=== PATIENT | female | born 1960 | race Caucasian/White ===

== ENCOUNTER 2016-09-03 15:45 | Emergency (ER) | payer MEDICARE, MEDICAID ==
[~2016-09-03] VITALS: Ht 160 cm; Wt 54.4 kg
[~2016-09-03 15:45] MED LIST: ATIVAN0.5 MG PO; CIPRO 500MG TA500 MG PO; CORTISPORIN OTI10 M1 OT; DIFLUCAN 440 MG/1 ML PO; DIPROLENE AF0.05% TP; FIORICET1 CAP PO; FLEXERIL10 MG PO; FLONASE 50 MCG16 GM; HYDROCODONE1 TABLET PO; KCL 10% 2020 MEQ/15 PO; KEFLEX 500MG.500 MG PO; KEPPRA 500 MG500 MG PO; LORTAB 5/500 501 TAB PO; MAG-OX 400400 MG PO; MULTI-VITAMIN1 EACH PO; NAPROSYN 500MG500 MG PO; NAPROSYN500 M1 PO; NORCO1 TAB PO; PERCOCET 325 MG1 TA2 PO; PERCOCET 5/3251 EACH PO; PHENERGAN 25MG.25 M1 PO; ROBAXIN 500 MG500 MG PO; TEGRETOL 100MG100 MG PO; TEGRETOL 200MG200 MG PO; TETRACYCLINE500 MG PO; ULTRAM 50 MG TA50 MG PO; VICODIN 5/500 T1 TAB PO; VOLTAREN75 MG PO; ZANAFLEX4 MG PO; ZOFRAN4 MG PO; [UNRECOGNIZED DRUG - OTHER] PO; [UNRECOGNIZED DRUG - OTHER] PO
--- OUTSIDE RECORDS SUMMARY | 2016-09-03 16:22 | External Medical Summary Rpt ---
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 [place] FUN[place] ALL 6 MEDICAL UNILATERA IMAGING L WITH ASS PELVIS 1 VIEW CRITICAL 77096 JONO DE LA CRUZ CARE 6 [facility] ILL/INJUR INC INC ED PATIENT INIT 30-74 MIN GROUND A0425 [facility] MILEAGE 6 AMBULANCE AMBULANCE PER SERVICE SERVICE STATUTE MILE [facility] A0427 [facility] SERVICE 6 AMBULANCE AMBULANCE ALS SERVICE SERVICE EMERGENCY TRANSPORT LEVEL 1 HOSPITAL G0463 JONO DE LA CRUZ OUTPATIEN 6 [facility]OS[facility] T CLIN INC INC VISIT ASSESS & MGMT PT CT SOFT 19421 RADIOLOGY LESLIE TISSUE 6 NECK ASSOCIATE W/CONTRAS S OF NOT T MATERIAL NONCOVERE A9270 [facility] ITEM OR 6 [facility] SERVICE ARI ARI RADEX 66443 RADIOLOGY TEE FOOT 6 COMPLETE ASSOCIATE MINIMUM 3 S OF NOT VIEWS RADEX HIP 60250 RADIOLOGY TEE 6 UNILATERA ASSOCIATE L WITH S OF NOTH PELVIS 2-3 VIEWS SURGICAL L3260 ADVANCED ADVANCED BOOT/SHOE 6 TECHNOLOG TECHNOLOG EACH IES INC IES INC RADEX 15875 RADIOLOGY TEE SPINE 6 CERVICAL ASSOCIATE 4 OR 5 S OF NOTH VIEWS DRUG TST G0477 JONO DE LA CRUZ PRESUMP;C 6 [facility]OS[facility] PBL BEING INC INC READ DC OPT OBV ONLY HOSPITAL G0463 JONO DE LA CRUZ OUTPATIEN 6 [facility]OS[facility] T CLIN INC INC VISIT ASSESS & MGMT PT DRUG TEST G0481 JONO DE LA CRUZ DEFINITV [address] [facility] [address] ID INC INC METH P DAY 8-14 DRUG CL MRI LOWER 62451 RADIOLOGY BRANDSER EXTREM 6 ARIEL OTH/THN ASSOCIATE JT W/O S OF NOTH CONTR MATRL HOSPITAL G0463 JONO WATERSON OUTPATIEN 6 [facility] T CLIN INC INC VISIT ASSESS & MGMT PT DRUG TST G0477 JONO DE LA CRUZ PRESUMP;C 6 [facility]OSP PBL BEING INC INC READ DC OPT OBV ONLY RADEX 86284 BEACON RUBY ANKLE 5 ORTHOPAED ADA COMPLETE ICS & MINIMUM 3 SPORTS VIEWS RADEX 40291 BEACON RUBY FOOT 5 ORTHOPAED ADA COMPLETE ICS & MINIMUM 3 SPORTS VIEWS RADIOLOGI 94655 [facility] [place] JOE C EXAM 5 RADIOLOGY CAR CHEST 2 VIEWS FRONTAL&L ATERAL RADEX HIP 52409 [facility] [place] DIAZ 5 RADIOLOGY CAR UNILATERA L 1 VIEW CONV PREV 91751 NEW [place] HIP TOT 5 [place] [facility] ARTHRP PSC W/WO AGRFT/[place] L[place] I [address] NEW W[place]US SURG 5 [facility] PATHOLOGY CLINIC GROSS PSC EXAMINATI ON ONLY RADIOLOGI 95163 [facility] [place] KOSTELIC C EXAM 5 RADIOLOGY KANDICE CHEST 2 VIEWS FRONTAL&L ATERAL ECG 10702 NEW [place] ROUTINE 5 [facility] ECG CLINIC W/LEAST PSC 12 LDS I&R ONLY ARTHROCEN 04939 NEW [place]-M TESIS 5 [place] [facility] ASPIR&/IN CLINIC MAREK J MAJOR PSC JT/BURSA W/O US LOCM Q9967 NEW MARIA A-M 300-399 5 [place] [facility] MG/ML CLINIC MAREK IODINE PSC CONCENTRA TION PER ML MRI ANY 41965 [place]-M JT LOWER 5 [place] [facility] EXTREM CLINIC MAREK W/O PSC CONTRAST MATRL RADEX HIP 93990 [place] MARIFER 5 MEDICAL DEMETRICE UNILATERA IMAGING L ASS COMPLETE MINIMUM 2 VIEWS ARTHROCEN 56409 [facility] PETTEY TESIS 5 PHYSICIAN LARON ASPIR&/IN S GROUP J MAJOR JT/BURSA W/O US INJ J0702 [facility] PETTEY BETAMETHA 5 PHYSICIAN LARON SONE S GROUP ACETATE & PHOSPHATE 3 MG RADEX 19023 [place] FOOT 4 MEDICAL DEMETRICE COMPLETE IMAGING MINIMUM 3 ASS VIEWS SURGICAL L3260 ADVANCED ADVANCED BOOT/SHOE 4 TECHNOLOG TECHNOLOG EACH IES INC IES INC TYMPANOME 75208 PRIMESOUR PRIMESOUR TRY 2 CE CE HEALTHCAR HEALTHCAR E OF [place] E OF [place] [facility] [id number] [place] [address] 1 S CARE/DAY HEALTHCAR 25 E IN MINUTES [facility] [id number] [place] [address] 1 S COL CARE/DAY HEALTHCAR 25 E IN MINUTES RADIOLOGI 84046 MEDICAL SHAUNA 1 X-RAY INC SARAHY EXAMINATI ON CHEST SINGLE VIEW FRONTAL SBSQ [id number] [place] [address] 1 S COL CARE/DAY HEALTHCAR 25 E IN MINUTES RADIOLOGI 78233 MEDICAL AAKASH 1 X-RAY INC UNA EXAMINATI ON CHEST SINGLE VIEW FRONTAL [facility] [id number] [place] [address] 1 S COL CARE/DAY HEALTHCAR 25 E IN MINUTES ENTERAL 966 [facility] 1 [facility] CI CI SUBSTANCE S CONT 9672 [facility] INVASIVE [address] SPECIAL[address]- [facility] CI CI VE HRS/MORE SBSQ 91274 [facility] 1 S CARE/DAY HEALTHCAR 25 E IN MINUTES RADIOLOGI 51481 MEDICAL BECKES 1 X-RAY INC ANG EXAMINATI ON CHEST SINGLE VIEW FRONTAL SBSQ 81837 [facility] 1 S COL CARE/DAY HEALTHCAR 25 E IN MINUTES SBSQ 42690 [facility] 1 S COL CARE/DAY HEALTHCAR 25 E IN MINUTES DUP-SCAN 58943 [facility] XTR VEINS 1 CITY COMPLETE SURGICAL CONSULTA BILATERAL STUDY SBSQ 49188 [facility] 1 S LIBRA CARE/DAY HEALTHCAR 15 E IN MINUTES RADIOLOGI 41607 MEDICAL CRISPIN 1 X-RAY INC ANG EXAMINATI ON CHEST SINGLE VIEW FRONTAL SBSQ 39031 [facility] 1 S LIBRA CARE/DAY HEALTHCAR 15 E IN MINUTES SBSQ 28646 [facility] 1 S COL CARE/DAY HEALTHCAR 25 E IN MINUTES SBSQ 12190 [facility] 1 S COL CARE/DAY HEALTHCAR 35 E IN MINUTES RADIOLOGI 24607 MEDICAL STEPHANIE CHRISTOPHER C 1 X-RAY INC EXAMINATI ON CHEST SINGLE VIEW FRONTAL RADIOLOGI 68421 MEDICAL BECKES C 1 X-RAY INC ANG EXAMINATI ON CHEST SINGLE VIEW FRONTAL SBSQ 92443 [facility] 1 S COL CARE/DAY HEALTHCAR 25 E IN MINUTES RADIOLOGI 49947 MEDICAL MELANIE RAY C 1 X-RAY INC EXAMINATI ON CHEST SINGLE VIEW FRONTAL RADIOLOGI 33090 MEDICAL ADRIAN GAL C 1 X-RAY INC EXAMINATI ON CHEST SINGLE VIEW FRONTAL MRI 02623 NGUYEN GAITAN SPINAL 1 X-RAY INC CANAL LUMBAR W/O CONTRAST MATERIAL RADEX 24918 NGUYEN MORRIS SPINE 1 X-RAY INC CONSTANCE LUMBOSACR AL 2/3 VIEWS RADIOLOGI 57271 MEDICAL AAKASH C 1 X-RAY INC UNA EXAMINATI ON CHEST SINGLE VIEW FRONTAL SBSQ 08491 [facility] 1 S CARE/DAY HEALTHCAR 25 E IN MINUTES SBSQ 38321 [facility] 1 S COL CARE/DAY HEALTHCAR 25 E IN MINUTES SBSQ 22503 [facility] 1 S COL CARE/DAY HEALTHCAR 25 E IN MINUTES SBSQ 12715 [facility] 1 S COL CARE/DAY HEALTHCAR 15 E IN MINUTES SBSQ 79063 [facility] 1 S COL CARE/DAY HEALTHCAR 25 E IN MINUTES RADIOLOGI 74556 MEDICAL FLORI C 1 X-RAY INC MAREK EXAMINATI ON CHEST SINGLE VIEW FRONTAL RADIOLOGI 70751 MEDICAL FLORI Lee 1 X-RAY INC MAREK EXAMINATI ON CHEST SINGLE VIEW FRONTAL RADIOLOGI 33874 MEDICAL CRISPIN C 1 X-RAY INC ANG EXAMINATI ON CHEST SINGLE VIEW FRONTAL RADIOLOGI 93020 MEDICAL ADRIAN GARCIA C 1 X-RAY INC EXAMINATI ON CHEST SINGLE VIEW FRONTAL SBSQ 76153 [facility] 1 S LIBRA CARE/DAY HEALTHCAR 15 E IN MINUTES SBSQ 77766 [facility] 1 S LIBRA CARE/DAY HEALTHCAR 15 E IN MINUTES RADIOLOGI 79004 MEDICAL SHAUNA C 1 X-RAY INC SARAHY EXAMINATI ON CHEST SINGLE VIEW FRONTAL SBSQ 30534 [facility] 1 S COL CARE/DAY HEALTHCAR 25 E IN MINUTES FLUORO 74456 MEDICAL JULIANO CENTRAL 1 X-RAY INC FRA VENOUS ACCESS DEV PLACEMENT INSJ [facility] 18504 MEDICAL JULIANO CVC W/O 1 X-RAY INC FRA SUBQ PORT/COMB TENDER AGE 4 YR/> VASC 71314 MEDICAL JULIANO ACCESS 1 X-RAY INC FRA SITS VSL PATENCY NDL ENTRY RADIOLOGI 66904 [facility] 1 X-RAY INC CONSTANCE EXAMINATI ON CHEST SINGLE VIEW FRONTAL INTUBATIO 93215 OBSTETRIC ELLER AYAH N 1 ENDOTRACH ANESTHESI EAL A ASSOCIA EMERGENCY PROCEDURE SBSQ 03534 [facility] 1 S COL CARE/DAY HEALTHCAR 35 E IN MINUTES CRITICAL 66311 [facility] 1 EMERGENCY ILL/INJUR ED SPECIALIS PATIENT INIT 30-74 MIN RADIOLOGI 49241 [facility] 1 X-RAY INC UNA EXAMINATI ON CHEST SINGLE VIEW [facility] 72715 A C JESSICA DISCHARGE 1 ARISTIDES RAMOS NANDA DAY PSC MANAGEMEN T 30 MIN/< SBSQ 49466 [facility] 1 ARISTIDES RAMOS CARE/DAY PSC 15 MINUTES SBSQ 23178 [facility] 1 ARISTIDES RAMOS CARE/DAY PSC 15 MINUTES RADEX 38392 [place]ER SPINE 1 MEDICAL DEMETRICE LUMBOSACR IMAGING AL 2/3 ASS VIEWS SPECIAL 18579 PATHOLOGY PATHOLOGY STAIN 1 & & GROUP 1 CYTOLOGY CYTOLOGY MICROORGA LAB LAB NISMS I&R SPCL STN 06256 PATHOLOGY PATHOLOGY 2 I&R 1 & & EXCPT CYTOLOGY CYTOLOGY MICROORG/ LAB LAB ENZYME/[place] [address] PATHOLOGY PATHOLOGY SURG 1 & & PATHOLOGY CYTOLOGY CYTOLOGY LAB LAB GROSS&UNA ROSCOPIC EXAM ANES 73585 [facility] 1 ANESTH JACY ENDOSCOPY OF THE PROXIMAL BLUE TO DUODENUM EGD 32392 FRANCISCO SINGH JR TRANSORAL 1 CONSTANCE CONSTANCE BIOPSY SINGLE/MU LTIPLE SBSQ 56411 [facility] 1 ARISTIDES RAMOS CARE/DAY PSC 25 MINUTES ESOPHAGOG 4516 JONO DE LA CRUZ ASTRODUOD 1 [facility] ENOSCOPY INC INC WITH CLOSED BIOPSY SBSQ 92800 [facility] 1 ARISTIDES RAMOS CARE/DAY PSC 25 MINUTES HEPATBL 44042 [facility] BURNSMARIFER DUX SYS 1 MEDICAL DEMETRICE IMG IMAGING GLBLDR ASS INITIAL 49592 [facility] 1 CONSTANCE NOLASCO CARE/DAY 70 MINUTES INITIAL 78096 Yury [facility] 1 ARISTIDES RAMOS CARE/DAY P[place] 70 [place] [address] ABENA CAICEDO ABDOMINAL 1 MEDICAL DEMETRICE REAL IMAGING TIME ASS W/IMAGE LIMITED GROUND A0425 [facility] MILEAGE 1 AMBULANCE AMBULANCE PER SERVICE SERVICE STATUTE MILE 3D 89893 ABENA BURNSUTCHER RENDERING 1 MEDICAL DEMETRICE IMAGING W/INTERP& ASS POSTPROC DIFF WORK STATION AMB A0427 [facility] SERVICE 1 AMBULANCE AMBULANCE ALS SERVICE SERVICE [place] [address] ABENA CAICEDO ABDOMEN & 1 MEDICAL DEMETRICE PELVIS IMAGING W/O ASS CONTRAST MATERIAL CYTP C/V 46904 BIO BIO AUTO THIN 1 REFERNCE REFERNCE LYR LABORATOR LABORATOR PREPJ SCR IES IES MNL RESCR PHYS NONEMERGE A0100 [facility] NCY 1 COMMUNITY TRANSPORT ACTION ATION; TAXI NONEMERGE A0100 [facility] NCY 1 COMMUNITY TRANSPORT ACTION ATION; TAXI COLPOSCOP 65594 [facility] MANZANARES R Y ENTIRE 1 VERA GAMEZ MD VAGINA W/CERVIX IF PRESENT IADNA 73802 BIO BIO CHLAMYDIA 1 REFERNCE REFERNCE LABORATOR LABORATOR TRACHOMAT IES IES IS AMPLIFIED PROBE TQ [facility]- 46161 [place] AIDED 1 MEDICAL DEMETRICE DETECTION IMAGING ASS SCREENING MAMMOGRAP HY SCREENING G0202 [facility] 1 MEDICAL DEMETRICE MAMMOGRAP IMAGING HY WHITNEY ASS INCL CAD WHEN PERFORMD CYTP C/V 58755 BIO BIO AUTO THIN 1 REFERNCE REFERNCE LYR LABORATOR LABORATOR PREPJ SCR IES IES MNL RESCR PHYS CYTP 71721 BIO BIO CERVICAL/ 1 REFERNCE REFERNCE VAGINAL LABORATOR LABORATOR REQ IES IES INTERP PHYSICIAN IADNA 33453 BIO BIO NEISSERIA 1 REFERNCE REFERNCE LABORATOR LABORATOR GONORRHOE IES IES AE AMPLIFIED PROBE TQ IADNA NOS 51466 BIO BIO 1 REFERNCE REFERNCE AMPLIFIED LABORATOR LABORATOR PROBE TQ IES IES EACH ORGANISM NONEMERGE A0100 [facility] 1 COMMUNITY TRANSPORT ACTION ATION; TAXI BLOOD 66621 LEIGHTON GAMEZ OCCULT 1 VERA PYLE E ACTV QUAL FECES 1 DETER SIMPLE 56447 JONO DE LA CRUZ REPAIR 1 [facility] SCALP/NEC INC INC K/AX/DORITA T/TRUNK 2.5CM/< BLOOD 03959 [facility] COUNT 1 [facility] COMPLETE AUTO&AUTO DIFRNTL WBC BASIC 40208 [facility] METABOLIC 1 [facility] PANEL CALCIUM TOTAL CYANOCOBA 46524 [facility] PRIYA 1 [facility] VITAMIN B-12 [place] [address] [facility] OF FERRITIN 1 [place] [address] [facility] OF [facility] FOLIC 1 [facility] [place] [place] [address] [facility] IRON 1 [facility] COLLECTIO 44453 A C TAIWO CHRISTOPHER N VENOUS 1 ARISTIDES RAMOS BLOOD PSC VENIPUNCT URE LIPID 75949 [facility] PANEL 1 [facility] IRON 31374 [facility] BINDING 1 [facility] CAPACITY NONEMERGE A0100 [facility] 1 COMMUNITY TRANSPORT ACTION ATION; TAXI NONEMERGE A0100 [facility] 1 COMMUNITY TRANSPORT ACTION ATION; TAXI INJ J0702 [facility] PETTEY BETAMETHA 1 PHYSICIAN LARON PIZANO S GROUP ACETATE & PHOSPHATE 3 MG ARTHROCEN 88887 [facility] TESIS 1 PHYSICIAN PHYSICIAN ASPIR&/IN S GROUP S GROUP J MAJOR JT/BURSA W/O US NONEMERGE A0100 [facility] 1 COMMUNITY TRANSPORT ACTION ATION; TAXI COLLECTIO 01394 JONO DE LA CRUZ N VENOUS 1 [facility] [place] [address] JONO DE LA CRUZ THYROID [address] [facility] STIMULATI [place] [address] JONO DE LA CRUZ THYROXINE [facility] TOTAL INC INC THYROID 51992 JONO DE LA CRUZ HORM [facility]P UPTK/THYR INC INC OID HORMONE BINDING RATIO NONEMERGE A0100 [facility] 1 COMMUNITY TRANSPORT ACTION ATION; TAXI NONEMERGE A0100 [facility] NC[facility] 1 COMMUNITY TRANSPORT ACTION ATION; TAXI RADIOLOGI 82143 [facility] BURNSMARIFER C 1 MEDICAL DEMETRICE EXAMINATI IMAGING ON PELVIS ASS 1/2 VIEWS RADEX 50231 [facility] WRIST 1 MEDICAL DEMETRICE COMPLETE IMAGING MINIMUM 3 ASS VIEWS RADEX 11785 [place] SPINE 1 MEDICAL DEMETRICE LUMBOSACR IMAGING AL ASS MINIMUM 4 VIEWS RADEX 25317 [place] SACRUM & 1 MEDICAL DEMETRICE COCCYX IMAGING MINIMUM 2 ASS VIEWS CANE INCL E0100 SILVINA SILVINA CANES 0 HOME MED HOME MED ALL EQUIP. L EQUIP. L MATERIAL ADJUSTBLE /FIX W/TIP KNEE L1810 SILVINA SILVINA ORTHOSIS 0 HOME MED HOME MED ELASTIC EQUIP. L EQUIP. L JOINTS PREFAB CUSTOM FIT NONEMERGE A0100 [facility] 0 COMMUNITY TRANSP[place]; [place] [address] THE THE SURG 0 [facility] PATHOLOGY CLINIC CLINIC FOUNDAT FOUNDAT GROSS&UNA ROSCOPIC EXAM RADIOLOGI 71386 [facility] CONDONMARIFER C EXAM 0 MEDICAL DEMETRICE KNEE IMAGING COMPLETE ASS 4/MORE VIEWS NONEMERGE A0100 [facility] 0 COMMUNITY TRANSPORT ACTION ATION; TAXI NONEMERGE A0100 [facility] 0 COMMUNITY TRANSPORT ACTION ATION; TAXI NONEMERGE A0100 [facility] 0 COMMUNITY TRANSPORT ACTION ATION; TAXI COLLECTIO 58642 JONO DE LA CRUZ N VENOUS 0 [facility]P [place]LOOD [place] [address] JONO DE LA CRUZ THYROID 0 [facility]P STIMULATI [place] [address] JONO DE LA CRUZ ESTRADIOL 0 [facility] INC INC NONEMERGE A0100 [facility] 0 COMMUNITY TRANSPORT ACTION ATION; TAXI SIMPLE 01712 JONO DE LA CRUZ REPAIR 0 [facility] SCALP/NEC INC INC K/AX/DORITA T/TRUNK 2.5CM/< IM ADM 74081 JONO DE LA CRUZ PRQ ID 0 [facility] SUBQ/IM INC INC NJXS 1 VACCINE OPHTH 24112 VALENTINE NANCI VALENTINE NANCI MEDICAL 0 XM&EVAL COMPRHNSV ESTAB PT 1/> NONEMERGE A0100 [facility] 0 COMMUNITY TRANSPORT ACTION ATION; TAXI NONEMERGE A0100 [facility] 0 COMMUNITY TRANSPORT ACTION ATION; TAXI URINLS 69671 Yury MARAVILLA CHRISTOPHER DIP 0 ARISTIDES RAMOS STICK/TAB PSC LET REAGNT NON-AUTO MICRSCPY LIPID 92908 [facility] PANEL 0 [place] [facility] [place] [facility] COLLECTIO 05194 Yury MARAVILLA, N VENOUS 0 ARISTIDES SANCHEZ A BLOOD PSC VENIPUNCT URE GLUCOSE 56755 [facility] QUANTITAT 0 [facility] JEREMI BLOOD XCPT REAGENT STRIP NONEMERGE A0100 [facility] 0 COMMUNITY TRANSPORT ACTION ATION; TAXI SCREENING 74737 [place] MEDICAL SINCERE MAMMOGRAP IMAGING HY ASSOCIATE BILATERAL S IADNA 91462 [facility] OF NEISSERIA 0 [facility] GONORRHOE AE AMPLIFIED PROBE TQ CYTP C/V 25598 [facility] OF AUTO THIN 0 [facility] LYR PREPJ SCR MNL RESCR PHYS IADNA 09139 [facility] OF CHLAMYDIA 0 [facility] TRACHOMAT IS AMPLIFIED PROBE TQ COMPUTER- 48721 [place], AIDED 0 MEDICAL SINCERE DETECTION IMAGING ASSOCIATE SCREENING S MAMMOGRAP HY RADEX HIP 27231 MEDICAL ABDULAZIZ 0 X-RAY INC , UNILATERA LUIS L COMPLETE MINIMUM 2 VIEWS RADEX 92056 MEDICAL ABDULAZIZ SPINE 0 X-RAY INC , LUMBOSACR LUIS AL 2/3 VIEWS JOINT 54852 [facility] SUR[facility]Y 0 [facility] V[facility] 2 OR INC. INC. MORE JOINTS RADIOLOGI 75764 [facility] Cristian [place] C 0 RADIOLOGY JENNIFER EXAMINATI ASSOC OF ON KNEE OSCAR INC 1/2 VIEWS EGD 79555 [facility], TRANSORAL 0 SARKIS A BIOPSY GASTROENT SINGLE/[place] [address] SURG 0 LUIS SMITH PATHOLOGY MEDICALCE MEDICALCE GROSS&UNA NTER NTER ROSCOPIC EXAM COLONOSCO 40942 [facility], PY 0 SARKIS A W/BIOPSY GASTROENT SINGLE/MU EROLOGYAS LTIPLE SOC IMMUNOASS [address] AY 0 LUISDARA SMITH ANALYTE QUAL/SEMI MEDICALCE MEDICALCE QUAL NTER NTER MULTIPLE STEP BLOOD [address] COUNT 0 LUISDARA HENAOTH COMPLETE AUTO&AUTO MEDICALCE MEDICALCE DIFRNTL NTER NTER WBC COLLECTIO 34291 [facility] N VENOUS 0 LUIS HENAOTH BLOOD VENIPUNCT MEDICALCE MEDICALCE URE NTER NTER BLOOD 84645 [facility] 0 [facility] COMPLETE INC INC AUTO&AUTO DIFRNTL WBC THER 97930 [facility] PROPH/DX 0 [facility] NJX IV INC INC PUSH SINGLE/1S T SBST/DRUG BASIC 17852 [facility] METABOLIC 0 [facility] PANEL INC INC CALCIUM TOTAL THERAPEUT 42801 [facility] IC 0 [facility] INJECTION INC INC IV PUSH EACH NEW DRUG GROUND A0425 [facility] MILEAGE 0 AMBULANCE AMBULANCE PER SERVICE SERVICE STATUTE MILE KNEE L1830 [facility] ORTHOSIS 0 [facility] IMMOBLIZE INC [place] [address] [facility] INFUSION 0 [facility] THER INC INC PROPH ADDL SEQUENTIA L TO 1 HR AMBULANCE A0429 [facility] SERVICE 0 AMBULANCE AMBULANCE [facility] SERVICE SERVICE [place] [address] MEDICAL [facility] EXTREMITY 0 X-RAY INC , DANIELITO W/[place] [address] MEDICAL MELANIE, ABDOMEN 0 X-RAY INC EHSAN T W/CONTRAS T MATERIAL INITIAL 15511 [facility] 0 [facility]/DAY CORPORATI I [address] PELVIS [address] MEDICAL MELANIE, 0 X-RAY INC EHSAN T W/CONTRAS T MATERIAL RADIOLOGI 37768 RADIOLOGY Jesus RUBY EXAM 9 JEM L KNEE ASSOCIATE COMPLETE S PSC 4/MORE VIEWS BLOOD [address] COUNT 8 [facility] COMPLETE AUTO&AUTO MEDICALCE MEDICALCE DIFRNTL NTER NTER WBC HEPATIC [address] FUNCTION 8 [facility] PANEL MEDICALCE MEDICALCE NTER NTER DRUG [address] ASSAY 8 [facility] [place] MEDICALCE MEDICALCE TOTAL NTER NTER ECG 21705 [facility], ROUTINE 8 HEART & DANIELLE ECG VASCULAR W/[facility] CENTER 12 [facility] I&R ONLY RADIOLOGI 33604 [facility] UNIVERSIT C 8 Y Y EXAMINATI [facility] ON [facility] INC. INC. & FIBULA 2 VIEWS BLOOD 43921 UN[facility] UNIVERSIT COUNT 8 Y Y [facility] AUTO&AUTO INC. INC. DIFRNTL WBC SEDIMENTA 85507 UNIVERSIT UNIVERSIT TION RATE 8 Y Y RBC [facility] AUTOMATED INC. INC. RADEX 24695 UN[facility] UNIVERSIT FOOT 8 Y Y [facility] MINIMUM 3 INC. INC. VIEWS C-REACTIV 34964 UN[facility] UNIVERSIT E PROTEIN 8 Y Y [facility] INC. INC. Encounters Encounter Start End Date Code Location Performer Type Date OFFICE 69036 [facility] 7 7 [place] [facility] 15 PSC MINUTES OFFICE 59499 [facility] OUTPATIEN 7 7 [place] [facility] 15 PSC MINUTES [facility] ACCESS [address] [facility] JONO - 6 6 [facility] T [facility] J[facility]O - 6 6 [facility] OUTPATI[facility] INC T OFFICE 03848 [facility] LENNIEL OUTPATIEN 6 6 PHYSICIAN DISHA T VISIT S GROUP 15 MINUTES [facility] - 6 6 [facility] OUTPATIEN INC T OFFICE 11173 [facility] OUTPATIEN 6 6 [place] [facility] [place] [facility] 15 PSC MINUTES OFFICE 19062 [facility] OUTPATIEN 6 6 MD VIKA, T VISIT PSC 15 MINUTES [facility] - 6 6 [facility] INC T OFFICE 04323 [facility] SO OUTPATIEN 6 6 [place] [facility] 15 PSC MINUTES OFFICE 47018 [facility] OUTPATIEN 6 6 MD VIKA, T VISIT PSC 15 MINUTES [facility] - 6 6 [facility] OUTPATIEN INC T EMERGENCY 31977 [facility] 6 6 [facility] DEPARTMEN INC T VISIT LOW/MODER SEVERITY [facility] - 6 6 [facility] T [facility] - 6 6 [facility] OUTPATIEN INC T OFFICE 91466 [facility] HOOKER OUTPATIEN 6 6 PHYSICIAN T VISIT S GROUP 25 MINUTES [facility]OSPITAL [facility] - 6 6 [facility] OUTPATIEN INC T OFFICE 64966 [facility] OUTPATIEN 6 6 MD VIKA, T VISIT PSC [address] [facility] T VISIT MODERATE SEVERITY CRITICAL ST. ACCESS 6 6 [facility] OFFICE 00282 AJ WEATHERS OUTPATIEN 6 6 MD VIKA, T VISIT PSC 15 MINUTES HOSPITAL [facility] - 6 6 [facility] T OFFICE 77718 ALBER STEVENS OUTPATIEN 6 6 T NEW 45 MINUTES OFFICE 39257 OSCAR RUBY OUTPATIEN 6 6 ORTHOPAED ADA T VISIT ICS & 15 SPORTS MINUTES HOSPITAL JONO - 6 6 [facility] T OFFICE 35826 AJ VILLANUEVA OUTPATIEN 6 6 MD VIKA, T NEW 45 PSC MINUTES OFFICE 82086 OSCAR RUBY OUTPATIEN 5 5 ORTHOPAED ADA T NEW 30 ICS & MINUTES SPORTS [facility] JONO - 5 5 [facility] T OFFICE 02967 [facility] PETTEY OUTPATIEN 5 5 PHYSICIAN JAM T VISIT S GROUP 15 MINUTES EMERGENCY 61287 HUHN THO HUHN THO 4 4 [facility] MODERATE SEVERITY Emergency TRACEE ZUÑIGA (ER) 4 18:23 4 19:15 [facility] - [facility] 1 1 [facility] INPATIENT INC EMERGENCY 41132 SHAILESH ROBERTS DEPT 1 1 EMERGENCY III FERMIN VISIT SERVICES HIGH SEVERITY& THREAT FUNCJ EMERGENCY 49327 SHAILESH MARIN DEPT 1 1 EMERGENCY UNA VISIT SERVICES HIGH SEVERITY& THREAT FUNCJ OFFICE 27019 LEIGHTON GAMEZ OUTPATIEN 1 1 VERA GAUTHIER T VISIT 15 MINUTES EMERGENCY 12344 JONO 1 1 [facility] LOW/MODER SEVERITY OFFICE 37657 LEIGHTON GAMEZ OUTPATIEN 1 1 VERA GAUTHIER T VISIT 40 MINUTES HOSPITAL JONO - 1 1 [facility] OUTPATIEN INC T EMERGENCY 09707 SHAILESH ELKINS 1 1 [facility]ISIT HIGH/URGE NT SEVERITY HOSPITAL JONO - 1 1 [facility] OUTPATIEN INC T EMERGENCY 47709 [facility]OW/MODER SEVERITY OFFICE 13000 A C OUTPATIEN 1 1 ARISTIDES RAMOS T VISIT PSC 15 MINUTES OFFICE 06511 [facility] PETTEY OUTPATIEN 1 1 PHYSICIAN LARON T VISIT S GROUP 15 MINUTES OFFICE 81440 LEIGHTON GAMEZ OUTPATIEN 1 1 VERA GAUTHIER T VISIT 15 MINUTES HOSPITAL JONO - 1 1 [facility] OUTPATIEN INC HOSPITAL JONO - 1 1 [facility] OUTPATIEN INC T EMERGENCY 59279 JONO 1 1 [facility]ISIT LOW/MODER SEVERITY EMERGENCY 69710 SHAILESH MARIN [address] [facility] DEPARTMEN SERVICES T VISIT HIGH/URGE NT SEVERITY OFFICE 90839 [facility] PETTEY OUTPATIEN 0 0 PHYSICIAN JAM T VISIT S GROUP 15 MINUTES HOSPITAL [facility] - 0 0 [place] 49085 [facility] PETTEY OUTPATIEN 0 0 PHYSICIAN JAM T NEW 45 S GROUP MINUTES OFFICE 65640 LEIGHTON GAMEZ OUTPATIEN 0 0 VERA GAUTHIER T VISIT 15 MINUTES HOSPITAL JONO - 0 0 [facility] OUTPATIEN INC T OFFICE 12878 LEIGHTON Madison HARTOBY OUTPATIEN 0 0 VERA GAUTHIER T VISIT 15 MINUTES OFFICE 28860 LEIGHTON GAMEZ OUTPATIEN 0 0 VERA GAUTHIER T VISIT 15 MINUTES EMERGENCY 37528 JONO 0 0 [facility] DEPARTMEN INC T VISIT LOW/MODER SEVERITY HOSPITAL JONO - 0 0 [facility] OUTPATIEN INC T EMERGENCY 21062 SHAILESH SHAWNCurtis BAB 0 0 EMERGENCY DEPARTMEN SERVICES T VISIT MODERATE SEVERITY OFFICE 17968 A Jesus WHITE OUTPATIEN 0 0 ARISTIDES RAMOS T VISIT PSC 15 MINUTES OFFICE 26277 [facility] OUTPATIEN 0 0 [facility] T NEW 45 MINUTES EMERGENCY 57858 QUALIFED MEGAN AYAH 0 0 EMERGENCY DEPARTMEN T VISIT SPECIALIS MODERATE SEVERITY OFFICE 98199 Yury MARAVILLA, OUTPATIEN 0 0 ARISTIDES Cotton T VISIT 5 PSC MINUTES OFFICE 84230 LEIGHT[facility] GAMEZ OUTPATIEN 0 0 VERA Madison T VISIT 15 MINUTES OFFICE 78664 LEIGHT[facility] GAMEZ OUTPATIEN 0 0 VERA [place] T VISIT 15 MINUTES HOSPITAL JONO - 0 0 [facility] OUTPATIEN INC T OFFICE 71902 [facility], OUTPATIEN 0 0 SARKIS A T VISIT GASTROENT 15 EROLOGYAS MINUTES SOC HOME [facility], 0 0 DIST OTHER HEALTH DEPT DESIGN ARCHITECT EMERGENCY 48835 QUALIFED KALLIE, 0 0 EMERGENCY SAMUEL DEPARTMEN T VISIT SPECIALIS MODERATE TS SEVERITY OFFICE 19296 [facility] OUTPATIEN 0 0 Y T VISIT 5 [facility] T INC. HOSPITAL ST - OTHER 0 0 [facility], 0 0 DIST OTHER HEALTH DEPT DESIGN ARCHITECT OFFICE 23169 [facility] 0 0 SARKIS A T NEW 45 GASTROENT MINUTES [facility] ST - OTHER 0 0 [facility] JONO - 0 0 [facility] OUTPATIEN INC T EMERGENCY 66439 SHAILESH GUAJARDO, 0 0 EMERGENCY BOSSMAN M DEPARTMEN SERVICES T VISIT HIGH/URGE ASSOCIATE NT S SEVERITY EMERGENCY 14608 QUALIFELucila LOVE, DEPT 0 0 EMERGENCY JOSEPH M VISIT HIGH SPECIALIS SEVERITY& TS THREAT FUNJ EMERGENCY 15237 SHAILESH HORAN, 0 0 EMERGENCY HONG DEPARTMEN SERVICES O T VISIT HIGH/URGE ASSOCIATE NT S SEVERITY [facility] JONO - 0 0 [facility] OUTPATIEN INC HOSPITAL UNIVERSIT - 8 8 Y [facility] OFF[facility] 85583 [facility] 8 Y T VISIT [facility] 15 [facility] - OTHER 8 8 [facility] 49308 RILEY CHAN, 8 8 [place] [facility] VIS[facility] ON MODERATE SEVERITY H[facility]PITAL [facility] - 8 8 Y [facility] 53054 UNIVERSIT 8 8 Y DEPARTMEN HOSPITAL T VISIT INC. LIMITED/M IN[facility] 8 8 Y [facility] INC[facility] OFFICE 09563 [facility] 8 8 Y T VISIT [place] [address] INC. MINUTES
--- OUTSIDE RECORDS SUMMARY | 2016-09-03 16:22 | External Medical Summary Rpt ---
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 2/3 VIEWS RADIOLOGI 21837 MEDICAL AAKASH C 1 X-RAY INC UNA EXAMINATI ON CHEST SINGLE VIEW FRONTAL SBSQ 06832 [facility] 1 S CARE/DAY HEALTHCAR 25 E IN MINUTES SBSQ 08826 [facility] 1 S COL CARE/DAY HEALTHCAR 25 E IN MINUTES SBSQ 70608 [facility] 1 S COL CARE/DAY HEALTHCAR 25 E IN MINUTES SBSQ 56570 [facility] 1 S COL CARE/DAY HEALTHCAR 15 E IN MINUTES SBSQ 40508 [facility] 1 S COL CARE/DAY HEALTHCAR 25 E IN MINUTES RADIOLOGI 98977 MEDICAL FLORI C 1 X-RAY INC MAREK EXAMINATI ON CHEST SINGLE VIEW FRONTAL RADIOLOGI 05658 MEDICAL FLORI Lee 1 X-RAY INC MAREK EXAMINATI ON CHEST SINGLE VIEW FRONTAL RADIOLOGI 90265 MEDICAL CRISPIN C 1 X-RAY INC ANG EXAMINATI ON CHEST SINGLE VIEW FRONTAL RADIOLOGI 95184 MEDICAL ADRIAN GARCIA C 1 X-RAY INC EXAMINATI ON CHEST SINGLE VIEW FRONTAL SBSQ 00814 [facility] 1 S LIBRA CARE/DAY HEALTHCAR 15 E IN MINUTES SBSQ 67049 [facility] 1 S LIBRA CARE/DAY HEALTHCAR 15 E IN MINUTES RADIOLOGI 49890 MEDICAL SHAUNA C 1 X-RAY INC SARAYH EXAMINATI ON CHEST SINGLE VIEW FRONTAL SBSQ 60518 [facility] 1 S COL CARE/DAY HEALTHCAR 25 E IN MINUTES FLUORO 85592 MEDICAL JULIANO CENTRAL 1 X-RAY INC FRA VENOUS ACCESS DEV PLACEMENT INSJ [facility] 93348 MEDICAL JULIANO CVC W/O 1 X-RAY INC FRA SUBQ PORT/DATA STORAGE SPECIALIST AGE 4 YR/> VASC 18551 MEDICAL JULIANO ACCESS 1 X-RAY INC FRA SITS VSL PATENCY NDL ENTRY RADIOLOGI 13487 [facility] 1 X-RAY INC CONSTANCE EXAMINATI ON CHEST SINGLE VIEW FRONTAL INTUBATIO 07870 OBSTETRIC ELLER AYAH N 1 ENDOTRACH ANESTHESI EAL A ASSOCIA EMERGENCY PROCEDURE SBSQ 70371 [facility] 1 S COL CARE/DAY HEALTHCAR 35 E IN MINUTES CRITICAL 76078 [facility] 1 EMERGENCY ILL/INJUR ED SPECIALIS PATIENT INIT 30-74 MIN RADIOLOGI 54214 [facility] 1 X-RAY INC UNA EXAMINATI ON CHEST SINGLE VIEW [facility] 38719 A C JESSICA DISCHARGE 1 ARISTIDES RAMOS NANDA DAY PSC MANAGEMEN T 30 MIN/< SBSQ 93234 A [facility] 1 ARISTIDES RAMOS CARE/DAY PSC 15 MINUTES SBSQ 20008 A [facility] 1 ARISTIDES RAMOS CARE/DAY PSC 15 MINUTES RADEX 17072 [place] [facility] SPINE 1 MEDICAL DEMETRICE LUMBOSACR IMAGING AL 2/3 ASS VIEWS SPECIAL 63614 PATHOLOGY PATHOLOGY STAIN 1 & & GROUP 1 CYTOLOGY CYTOLOGY MICROORGA LAB LAB NISMS I&R SPCL STN 92457 PATHOLOGY PATHOLOGY 2 I&R 1 & & EXCPT CYTOLOGY CYTOLOGY MICROORG/ LAB LAB ENZYME/[place] [address] PATHOLOGY PATHOLOGY SURG 1 & & PATHOLOGY CYTOLOGY CYTOLOGY LAB LAB GROSS&UNA ROSCOPIC EXAM ANES 92731 [facility] UPPER GI 1 ANESTH JACY ENDOSCOPY OF THE PROXIMAL BLUE TO DUODENUM EGD 03522 FRANCISCO SINGH JR TRANSORAL 1 CONSTANCE CONSTANCE BIOPSY SINGLE/MU LTIPLE SBSQ 03404 A [facility] 1 ARISTIDES RAMOS CARE/DAY PSC 25 MINUTES ESOPHAGOG 4516 [facility] DE [facility] ASTRODUOD 1 [facility] ENOSCOPY INC INC WITH CLOSED BIOPSY SBSQ 69614 A [facility] 1 ARISTIDES RAMOS CARE/DAY PSC 25 MINUTES HEPATBL 80327 [facility] BURNSMARIFER DUX SYS 1 MEDICAL DEMETRICE IMG IMAGING GLBLDR ASS INITIAL 37842 [facility] 1 CONSTANCE NOLASCO CARE/DAY 70 MINUTES INITIAL [address] [facility] 1 ARISTIDES RAMOS CARE/[place] P[place] 70 [place] [address] ABENA CAICEDO ABDOMINAL 1 MEDICAL DEMETRICE REAL IMAGING TIME ASS W/IMAGE LIMITED GROUND A0425 [facility] MILEAGE 1 AMBULANCE AMBULANCE PER SERVICE SERVICE STATUTE MILE 3D 68472 ABENA BURNSUTCHER RENDERING 1 MEDICAL DEMETRICE IMAGING W/INTERP& ASS POSTPROC DIFF WORK STATION AMB A0427 [facility] SERVICE 1 AMBULANCE AMBULANCE ALS SERVICE SERVICE [place] [address] ABENA CAICEDO ABDOMEN & 1 MEDICAL DEMETRICE PELVIS IMAGING W/O ASS CONTRAST MATERIAL CYTP C/V 43066 BIO BIO AUTO THIN 1 REFERNCE REFERNCE LYR LABORATOR LABORATOR PREPJ SCR IES IES MNL RESCR PHYS NONEMERGE A0100 [facility] CAB NCY 1 COMMUNITY TRANSPORT ACTION ATION; TAXI NONEMERGE A0100 [facility] CAB NCY 1 COMMUNITY TRANSPORT ACTION ATION; TAXI COLPOSCOP 66714 [facility] MANZANARES R Y ENTIRE 1 VERA GAMEZ MD VAGINA W/CERVIX IF PRESENT IADNA 31362 BIO BIO CHLAMYDIA 1 REFERNCE REFERNCE LABORATOR LABORATOR TRACHOMAT IES IES IS AMPLIFIED PROBE TQ [facility]- [address]10 [place] [facility] AIDED 1 MEDICAL DEMETRICE DETECTION IMAGING ASS SCREENING MAMMOGRAP HY SCREENING G0202 [facility] 1 MEDICAL DEMETRICE MAMMOGRAP IMAGING HY WHITNEY ASS INCL CAD WHEN PERFORMD CYTP C/V 12559 BIO BIO AUTO THIN 1 REFERNCE REFERNCE LYR LABORATOR LABORATOR PREPJ SCR IES IES MNL RESCR PHYS CYTP 23001 BIO BIO CERVICAL/ 1 REFERNCE REFERNCE VAGINAL LABORATOR LABORATOR REQ IES IES INTERP PHYSICIAN IADNA 94332 BIO BIO NEISSERIA 1 REFERNCE REFERNCE LABORATOR LABORATOR GONORRHOE IES IES AE AMPLIFIED PROBE TQ IADNA NOS 05081 BIO BIO 1 REFERNCE REFERNCE AMPLIFIED LABORATOR LABORATOR PROBE TQ IES IES EACH ORGANISM NONEMERGE A0100 [facility] 1 COMMUNITY TRANSPORT ACTION ATION; TAXI BLOOD 18135 [facility] GAMEZ OCCULT 1 VERA PYLE E ACTV QUAL FECES 1 DETER SIMPLE 36008 [facility] REPAIR 1 [facility] SCALP/NEC INC INC K/AX/DORITA T/TRUNK 2.5CM/< BLOOD 27512 [facility] COUNT 1 [facility] COMPLETE AUTO&AUTO DIFRNTL WBC BASIC 70459 [facility] METABOLIC 1 [facility] PANEL CALCIUM TOTAL CYANOCOBA 27830 [facility] PRIYA 1 [facility] VITAMIN B-12 [place] [address] [facility] FERRITIN 1 [facility] [place] [address] [facility] FOLIC 1 [facility] [place] [address] [facility] IRON 1 [facility] COLLECTIO 94937 A C TAIWO CHRISTOPHER N VENOUS 1 ARISTIDES RAMOS BLOOD PSC VENIPUNCT URE LIPID 48580 [facility] PANEL 1 [facility] IRON 70682 [facility] BINDING 1 [facility] CAPACITY NONEMERGE A0100 [facility] 1 COMMUNITY TRANSPORT ACTION ATION; TAXI NONEMERGE A0100 [facility] 1 COMMUNITY TRANSPORT ACTION ATION; TAXI INJ J0702 [facility] PETTEY BETAMETHA 1 PHYSICIAN LARON PIZANO S GROUP ACETATE & PHOSPHATE 3 MG ARTHROCEN 09227 [facility] TESIS 1 PHYSICIAN PHYSICIAN ASPIR&/IN S GROUP S GROUP J MAJOR JT/BURSA W/O US NONEMERGE A0100 [facility] 1 COMMUNITY TRANSPORT ACTION ATION; TAXI COLLECTIO 66258 [facility] N VENOUS 1 [facility] [place] [address] [facility] THYROID 1 [facility]P STIMULATI [place] [address] [facility] THYROXINE 1 [facility] TOTAL INC INC THYROID 95025 [facility] HORM 1 [facility] H[facility]P UPTK/THYR INC INC OID HORMONE BINDING RATIO NONEMERGE A0100 [facility] CAB NCY 1 COMMUNITY TRANSPORT ACTION ATION; TAXI NONEMERGE A0100 [facility] CAB NCY 1 COMMUNITY TRANSPORT ACTION ATION; TAXI RADIOLOGI 90955 [facility] BURNSMARIFER C 1 MEDICAL DEMERTICE EXAMINATI IMAGING ON PELVIS ASS 1/2 VIEWS RADEX 05201 [facility] WRIST 1 MEDICAL DEMETRICE COMPLETE IMAGING MINIMUM 3 ASS VIEWS RADEX 49352 [place] [facility] SPINE 1 MEDICAL DEMETRICE LUMBOSACR IMAGING AL ASS MINIMUM 4 VIEWS RADEX 53415 [place] [facility] SACRUM & 1 MEDICAL DEMETRICE COCCYX IMAGING MINIMUM 2 ASS VIEWS CANE INCL E0100 SILVINA SILVINA CANES 0 HOME MED HOME MED ALL EQUIP. L EQUIP. L MATERIAL ADJUSTBLE /FIX W/TIP KNEE L1810 SILVINA SILVINA ORTHOSIS 0 HOME MED HOME MED ELASTIC EQUIP. L EQUIP. L JOINTS PREFAB CUSTOM FIT NONEMERGE A0100 [facility] CAB NCY 0 COMMUNITY [place]; [place] [address] THE THE SURG 0 [facility] PATHOLOGY CLINIC CLINIC FOUNDAT FOUNDAT GROSS&UNA ROSCOPIC EXAM RADIOLOGI 49220 [facility] CONDONMARIFER C EXAM 0 MEDICAL DEMETRICE KNEE IMAGING COMPLETE ASS 4/MORE VIEWS NONEMERGE A0100 [facility] CAB NCY 0 COMMUNITY TRANSPORT ACTION ATION; TAXI NONEMERGE A0100 [facility] CAB NCY 0 COMMUNITY TRANSPORT ACTION ATION; TAXI NONEMERGE A0100 [facility] CAB NCY 0 COMMUNITY TRANSPORT ACTION ATION; TAXI COLLECTIO 29090 [facility] N VENOUS 0 [facility] HOSP [place]LOOD [place] [address] [facility] THYROID 0 [facility] STIMULAT[place] [address] [facility] ESTRADIOL 0 [facility] INC INC NONEMERGE A0100 [facility] CAB NCY 0 COMMUNITY TRANSPORT ACTION ATION; TAXI SIMPLE 51558 [facility] REPAIR 0 [facility] SCALP/NEC INC INC K/AX/DORITA T/TRUNK 2.5CM/< IM ADM 02334 [facility] PRQ ID 0 [facility] SUBQ/IM INC INC NJXS 1 VACCINE OPHTH 22633 VALENTINE NANCI VALENTINE NANCI MEDICAL 0 XM&EVAL COMPRHNSV ESTAB PT 1/> NONEMERGE A0100 [facility] CAB NCY 0 COMMUNITY TRANSPORT ACTION ATION; TAXI NONEMERGE A0100 [facility] CAB NCY 0 COMMUNITY TRANSPORT ACTION ATION; TAXI URINLS 21620 Yury MARAVILLA CHRISTOPHER DIP 0 ARISTIDES RAMOS STICK/TAB PSC LET REAGNT NON-AUTO MICRSCPY LIPID 27659 [facility] PANEL 0 [place] [facility] [place] INC COLLECTIO 11882 Yury MARAVILLA, N VENOUS 0 ARISTIDES SANCHEZ A BLOOD PSC VENIPUNCT URE GLUCOSE 50926 [facility] QUANTITAT 0 [place] JEREMI BLOOD XCPT REAGENT STRIP NONEMERGE A0100 [facility] CAB NCY 0 COMMUNITY TRANSPORT ACTION ATION; TAXI SCREENING 97288 [place] [facility] MEDICAL SICNERE MAMMOGRAP IMAGING HY ASSOCIATE BILATERAL S IADNA 34434 [facility] NEISSERIA 0 [facility] GONORRHOE AE AMPLIFIED PROBE TQ CYTP C/V 37671 [facility] AUTO THIN 0 [facility] LYR PREPJ SCR MNL RESCR PHYS IADNA 05409 [facility] CHLAMYDIA 0 [facility] TRACHOMAT IS AMPLIFIED PROBE TQ COMPUTER- 10370 [place] MAR[facility], AIDED 0 MEDICAL SINCERE DETECTION IMAGING ASSOCIATE SCREENING S MAMMOGRAP HY RADEX HIP 46577 MEDICAL ABDULAZIZ 0 X-RAY INC , UNILATERA LUIS L COMPLETE MINIMUM 2 VIEWS RADEX 04554 MEDICAL ABDULAZIZ SPINE 0 X-RAY INC , LUMBOSACR LUIS AL 2/3 VIEWS JOINT 18187 [facility] SUR[facility]Y 0 [facility] VIEW 2 OR INC. INC. MORE JOINTS RADIOLOGI 54215 [facility] Cristian [place] C 0 RADIOLOGY JENNIFER EXAMINATI ASSOC OF ON KNEE OSCAR INC 1/2 VIEWS EGD 35093 [facility], TRANSORAL 0 SARKIS A BIOPSY GASTROENT SINGLE/[place] [address] SURG 0 LUIS SMITH PATHOLOGY MEDICALCE MEDICALCE GROSS&UNA NTER NTER ROSCOPIC EXAM COLONOSCO 34247 [facility], PY 0 SARKIS A W/BIOPSY GASTROENT SINGLE/MU EROLOGYAS LTIPLE SOC IMMUNOASS [address] AY 0 LUISDARA SMITH ANALYTE QUAL/SEMI MEDICALCE MEDICALCE QUAL NTER NTER MULTIPLE STEP BLOOD [address] COUNT 0 LUISDARA HENAOTH COMPLETE AUTO&AUTO MEDICALCE MEDICALCE DIFRNTL NTER NTER WBC COLLECTIO 70396 [facility] N VENOUS 0 LUIS HENAOTH BLOOD VENIPUNCT MEDICALCE MEDICALCE URE NTER NTER BLOOD 68876 [facility] COUNT 0 [facility] COMPLETE INC INC AUTO&AUTO DIFRNTL WBC THER 55553 [facility] PROPH/DX 0 [facility] NJX IV INC INC PUSH SINGLE/1S T SBST/DRUG BASIC 02888 [facility] METABOLIC 0 [facility] PANEL INC INC CALCIUM TOTAL THERAPEUT 19235 [facility] IC 0 [facility] INJECTION INC INC IV PUSH EACH NEW DRUG GROUND A0425 [facility] MILEAGE 0 AMBULANCE AMBULANCE PER SERVICE SERVICE STATUTE MILE KNEE L1830 [facility] ORTHOSIS 0 [facility] IMMOBLIZE INC [place] [address] [facility] INFUSION 0 [facility] THER INC INC PROPH ADDL SEQUENTIA L TO 1 HR AMBULANCE A0429 AMANDA [facility] SERVICE 0 AMBULANCE [facility] SERVICE EMERGENCY TRANSPORT CT LOWER 51016 [facility] EXTREMITY 0 X-RAY INC , DANIELITO W/[place] [address] MEDICAL MELANIE, ABDOMEN 0 X-RAY INC EHSAN T W/CONTRAS T MATERIAL INITIAL 82061 [facility] 0 [facility]/DAY CORPORATI I [address] PELVIS 75086 MEDICAL MELANIE, 0 X-RAY INC EHSAN T W/CONTRAS T MATERIAL RADIOLOGI 34703 RADIOLOGY Jesus RUBY EXAM 9 JEM L KNEE ASSOCIATE COMPLETE S PSC 4/MORE VIEWS BLOOD [address] COUNT 8 [facility] COMPLETE AUTO&AUTO MEDICALCE MEDICALCE DIFRNTL NTER NTER WBC HEPATIC [address] FUNCTION 8 [facility] PANEL MEDICALCE MEDICALCE NTER NTER DRUG [address] [place] 8 [facility] CARBAMAZE PINE MEDICALCE MEDICALCE TOTAL NTER NTER ECG 27731 [facility] [place] [facility], ROUTINE 8 HEART & DANIELLE ECG VASCULAR W/LEAST CENTER 12 [facility] INC I&R ONLY RADIOLOGI 11217 UNIVERSIT UNIVERSIT C 8 Y Y EXAMINATI [facility] ON TIBIA INC. INC. & FIBULA 2 VIEWS BLOOD 31587 UN[facility]IT UNIVERSIT COUNT 8 Y Y [facility] AUTO&AUTO INC. INC. DIFRNTL WBC SEDIMENTA 35327 UN[facility]IT UNIVERSIT TION RATE 8 Y Y RBC [facility] AUTOMATED INC. INC. RADEX 53269 [facility] UN[facility]IT FOOT 8 Y Y [facility] MINIMUM 3 INC. INC. VIEWS C-REACTIV 63089 UN[facility]IT UNIVERSIT E PROTEIN 8 Y Y [facility] INC. INC. Encounters Encounter Start End Date Code Location Performer Type Date OFFICE 08033 [facility] 7 7 [place] [facility] 15 PSC MINUTES OFFICE 08423 [facility] OUTPATIEN 7 7 [place] [facility] 15 PSC MINUTES [facility] 6 [facility] 6 6 [facility] OUTPATIEN INC T [facility]OSP[facility] JONO - 6 6 [facility] OUTPATIEN INC T OFFICE 72515 [facility] LENNIEL OUTPATIEN 6 6 PHYSICIAN DISHA T VISIT S GROUP 15 MINUTES HOSPITAL JONO - 6 6 [facility] OUTPATIEN INC T OFFICE 00507 CIPRIANO LUIS ANTONIOOLGA OUTPATIEN 6 6 [place] [facility] [place] [facility] 15 PSC MINUTES OFFICE 15627 AJ [facility] OUTPATIEN 6 6 MD VIKA, T VISIT PSC 15 MINUTES [facility]OSP[facility] JONO - 6 6 [facility] OUTPATIEN INC T OFFICE 59640 CIPRIANO SO OUTPATIEN 6 6 [place] [facility] T [facility]IN[facility] 15 PSC MINUTES OFFICE 37205 AJ [facility] OUTPATIEN 6 6 MD VIKA, T VISIT PSC 15 MINUTES [facility]OSPITAL JONO - 6 6 [facility] OUTPATIEN INC T EMERGENCY 14539 JONO 6 6 [facility] DEPARTMEN INC T VISIT LOW/MODER SEVERITY HOSPITAL JONO - 6 6 [facility] OUTPATIEN INC T HOSPITAL JONO - 6 6 [facility] OUTPATIEN INC T OFFICE 93425 [facility] HOOKER OUTPATIEN 6 6 PHYSICIAN T VISIT S GROUP 25 MINUTES HOSPITAL JONO - 6 6 [facility] OUTPATIEN INC T OFFICE 55374 AJ [facility] OUTPATIEN 6 6 MD VIKA, T VISIT PSC [address] 6 6 [facility] T VISIT MODERATE SEVERITY CRITICAL ST. ACCESS 6 6 [facility] ARI OFFICE 71121 AJ [facility] OUTPATIEN 6 6 MD VIKA, T VISIT PSC 15 MINUTES HOSPITAL JONO - 6 6 [facility] OUTPATIEN INC T OFFICE 29511 ALBER STEVENS OUTPATIEN 6 6 T NEW 45 MINUTES OFFICE 83961 OSCAR RUBY OUTPATIEN 6 6 ORTHOPAED ADA T VISIT ICS & 15 SPORTS MINUTES HOSPITAL JONO - 6 6 [facility] OUTPATIEN INC T OFFICE 75388 AJ VILLANUEVA OUTPATIEN 6 6 MD VIKA, T NEW 45 PSC MINUTES OFFICE 53705 OSCAR RUBY OUTPATIEN 5 5 ORTHOPAED ADA T NEW 30 ICS & MINUTES [facility] JONO - 5 5 [facility] OUTPATIEN INC T OFFICE 54074 [facility] PETTEY OUTPATIEN 5 5 PHYSICIAN JAM T VISIT S GROUP 15 MINUTES EMERGENCY 57498 HUHN THO HUHN THO 4 4 [facility] MODERATE SEVERITY Emergency TRACEE ZUÑIGA (ER) 4 18:23 4 19:15 [facility] 1 [facility] INPATIENT INC EMERGENCY 86636 SHAILESH ROBERTS DEPT 1 1 EMERGENCY III FERMIN VISIT SERVICES HIGH SEVERITY& THREAT FUNCJ EMERGENCY 68569 SHAILESH MARIN DEPT 1 1 EMERGENCY UNA VISIT SERVICES HIGH SEVERITY& THREAT FUNCJ OFFICE 78723 [facility] GAMEZ OUTPATIEN 1 1 VERA GAUTHIER T VISIT 15 MINUTES EMERGENCY 79229 JONO 1 1 [facility]IS[facility] LOW/MODER SEVERITY OFFICE 38393 [facility] OUTPATIEN 1 1 VERA GAUTHIER T VISIT 40 MINUTES HOSPITAL JONO - 1 1 [facility] OUTPATIEN INC T EMERGENCY 79012 SHAILESH ELKINS 1 1 [facility] T VISIT HIGH/URGE NT SEVERITY HOSPITAL JONO - 1 1 [facility] OUTPATIEN INC T EMERGENCY 47919 [facility] [address] [facility] T VISIT LOW/MODER SEVERITY OFFICE 96948 A C OUTPATIEN 1 1 ARISTIDES RAMOS T VISIT PSC 15 MINUTES OFFICE 30733 [facility] PETTEY OUTPATIEN 1 1 PHYSICIAN LARON T VISIT S GROUP 15 MINUTES OFFICE 56154 [facility] GAMEZ OUTPATIEN 1 1 VERA GAUTHIER T VISIT 15 MINUTES HOSPITAL JONO - 1 1 [facility] INC HOSP[facility] JONO [facility] 1 1 [facility]PAT[facility] INC T EMERGENCY 37343 JONO 1 1 [facility] L[facility]/MODER SEVERITY EMERGENCY 28692 SHAILESH MARIN 1 1 [facility] DE[facility] T VISIT HIGH/URGE NT SEVERITY OFFICE 90860 [facility] PETTEY OUTPATIEN 0 0 PHYSICIAN JAM T VISIT S GROUP 15 MINUTES HOSPITAL [facility] OFF[facility] 49846 [facility] PETTEY OUTPATIEN 0 0 PHYSICIAN JAM T NEW 45 S GROUP MINUTES OFFICE 96481 [facility] OUTPATIEN 0 0 VERA GAUTHIER T VISIT 15 MINUTES HOSPITAL J[facility]O - 0 0 [facility] OUTPATI[facility] INC T OFFICE 43270 [facility] [place] HARTOBY OUTPATIEN 0 0 VERA GAUTHIER T VISIT 15 MINUTES OFFICE 76433 [facility] OUTPATIEN 0 0 VERA GAUTHIER T VISIT 15 MINUTES EMERGENCY 84593 JONO 0 0 [facility] DEPARTMEN INC T VISIT LOW/MODER SEVERITY HOSPITAL JONO - 0 0 [facility] OUTPATIEN INC T EMERGENCY 78105 SHAILESH SHAWNCurtis BAB 0 0 EMERGENCY DEPARTMEN SERVICES T VISIT MODERATE SEVERITY OFFICE 94026 A Jesus WHITE OUTPATIEN 0 0 ARISTIDES RAMOS T VISIT PSC 15 MINUTES OFFICE 91522 [facility] OUTPATIEN [address] 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 INC[facility] 0 0 [facility], 0 0 DIST OTHER HEALTH DEPT CERTIFIED DIALYSIS TECHNICIAN OFFICE 61441 [facility] 0 0 SARKIS A T NEW 45 GASTROENT MINUTES [facility] ST - OTHER 0 0 [facility] JONO - 0 0 [facility] OUTPATIEN INC T EMERGENCY 43075 SHAILESH GUAJARDO, 0 0 EMERGENCY [facility]OS[facility]AN M DEPARTMEN SERVICES T VISIT HIGH/URGE ASSOCIATE NT S SEVERITY EMERGENCY 49128 QUALIFELucila LOVE, DEPT 0 0 EMERGENCY JO[facility]PH M VISIT HIGH SPECIALIS SEVERITY& TS THREAT FUNJ EMERGENCY 04368 SHAILESH HORAN, 0 0 EMERGENCY HONG DEPARTMEN SERVICES O T VISIT HIGH/URGE ASSOCIATE NT S SEVERITY [facility] JONO - 0 0 [facility] OUTPATIEN INC HOSPITAL UNIVERSIT - 8 8 [facility] OFFICE 74905 [facility] 8 Y T VISIT HOSPITAL 15 INC[facility] H[facility] ST - OTHER 8 8 [facility] 89493 RILEY CHAN, 8 8 [facility] ON MODERATE SEVERITY HOSPITAL UNIVERSIT - 8 8 Y [facility] INC. EMERGENCY 09947 UNIVERSIT 8 8 Y DEPARTMEN HOSPITAL T VISIT INC. LIMITED/M [facility] [place] [address] Y [facility] OFFICE [id number] [facility] 8 8 Y T VISIT [place] [id number] INC. MINUTES
--- OUTSIDE RECORDS SUMMARY | 2016-09-03 16:28 | External Medical Summary Rpt ---
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 1 X-RAY INC ANG EXAMINATI ON CHEST SINGLE VIEW FRONTAL SBSQ 21200 [facility] 1 S COL CARE/DAY HEALTHCAR 25 E IN MINUTES SBSQ 06192 [facility] 1 S COL CARE/DAY HEALTHCAR 25 E IN MINUTES DUP-SCAN 62408 [facility] XTR VEINS 1 CITY COMPLETE SURGICAL CONSULTA BILATERAL STUDY RADIOLOGI 87452 NGUYEN Lee 1 X-RAY INC ANG EXAMINATI ON CHEST SINGLE VIEW FRONTAL SBSQ 68879 [facility] 1 S LIBRA CARE/DAY HEALTHCAR 15 E IN MINUTES SBSQ 74398 [facility] 1 S LIBRA CARE/DAY HEALTHCAR 15 E IN MINUTES SBSQ 19825 [facility] 1 S COL CARE/DAY HEALTHCAR 25 E IN MINUTES RADIOLOGI 47061 NGUYEN PORTER 1 X-RAY INC EXAMINATI ON CHEST SINGLE VIEW FRONTAL SBSQ 96203 [facility] 1 S COL CARE/DAY HEALTHCAR 35 E IN MINUTES RADIOLOGI 69179 MEDICAL CRISPIN C 1 X-RAY INC ANG EXAMINATI ON CHEST SINGLE VIEW FRONTAL RADIOLOGI 83865 MEDICAL MELANIE RAY C 1 X-RAY INC EXAMINATI ON CHEST SINGLE VIEW FRONTAL SBSQ 44811 [facility] 1 S COL CARE/DAY HEALTHCAR 25 E IN MINUTES RADIOLOGI 77521 MEDICAL ADRIAN GARCIA C 1 X-RAY INC EXAMINATI ON CHEST SINGLE VIEW FRONTAL MRI 36860 MEDICAL MICHAEL GAITAN SPINAL 1 X-RAY INC CANAL LUMBAR W/O CONTRAST MATERIAL RADEX 30003 MEDICAL ARTURO SPINE 1 X-RAY INC CONSTANCE LUMBOSACR AL 2/3 VIEWS RADIOLOGI 59520 MEDICAL AAKASH C 1 X-RAY INC UNA EXAMINATI ON CHEST SINGLE VIEW FRONTAL SBSQ 06890 [facility] 1 S CARE/DAY HEALTHCAR 25 E IN MINUTES SBSQ 28664 [facility] 1 S COL CARE/DAY HEALTHCAR 25 E IN MINUTES SBSQ 89060 [facility] 1 S COL CARE/DAY HEALTHCAR 25 E IN MINUTES SBSQ 37411 [facility] 1 S COL CARE/DAY HEALTHCAR 15 E IN MINUTES SBSQ 48824 [facility] 1 S COL CARE/DAY HEALTHCAR 25 E IN MINUTES RADIOLOGI 60060 MEDICAL RUBY C 1 X-RAY INC MAREK EXAMINATI ON CHEST SINGLE VIEW FRONTAL RADIOLOGI 23908 MEDICAL RUBY C 1 X-RAY INC MAREK EXAMINATI ON CHEST SINGLE VIEW FRONTAL RADIOLOGI 37563 MEDICAL CRISPIN C 1 X-RAY INC ANG EXAMINATI ON CHEST SINGLE VIEW FRONTAL RADIOLOGI 47518 MEDICAL ADRIAN GARCIA C 1 X-RAY INC EXAMINATI ON CHEST SINGLE VIEW FRONTAL SBSQ 51146 [facility] 1 S LIBRA CARE/DAY HEALTHCAR 15 E IN MINUTES SBSQ 06568 [facility] 1 S LIBRA CARE/DAY HEALTHCAR 15 E IN MINUTES RADIOLOGI 82651 [facility]ICAL [facility] 1 X-RAY INC SARAHY EXAMINATI ON CHEST SINGLE VIEW FRONTAL SBSQ 38330 [facility] 1 S COL CARE/DAY HEALTHCAR 25 E IN MINUTES INSJ PRPH 31291 MEDICAL JULIANO CVC W/O 1 X-RAY INC FRA SUBQ PORT/REGISTERED NURSE HH CASE 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 AGE 4 YR/> US VASC 53494 MEDICAL JULIANO ACCESS 1 X-RAY INC FRA SITS VSL PATENCY NDL ENTRY FLUORO 15224 MEDICAL JULIANO CENTRAL 1 X-RAY INC FRA VENOUS ACCESS DEV PLACEMENT INTUBATIO 71033 OBSTETRIC ELLER AYAH N 1 ENDOTRACH ANESTHESI EAL A ASSOCIA EMERGENCY PROCEDURE RADIOLOGI 52337 [facility] 1 X-RAY INC CONSTANCE EXAMINATI ON CHEST SINGLE VIEW FRONTAL SBSQ 98580 [facility] 1 S COL CARE/DAY HEALTHCAR 35 E IN MINUTES RADIOLOGI 26871 [facility] X-RAY INC UNA EXAMINATI ON CHEST SINGLE VIEW FRONTAL CRITICAL 60530 [facility] CARE 1 EMERGENCY ILL/INJUR ED SPECIALIS PATIENT INIT 30-74 MIN HOSPITAL 20883 A C JESSICA DISCHARGE 1 ARISTIDES MD NANDA DAY PSC MANAGEMEN T 30 MIN/< SBSQ 01037 A Jesus [facility] 1 ARISTIDES RAMOS CARE/DAY PSC 15 MINUTES SBSQ 25674 [facility] 1 ARISTIDES RAMOS CARE/DAY PSC 15 MINUTES RADEX 71574 [place] SPINE 1 MEDICAL DEMETRICE LUMBOSACR IMAGING AL 2/3 ASS VIEWS SPECIAL 17367 PATHOLOGY PATHOLOGY STAIN 1 & & GROUP 1 CYTOLOGY CYTOLOGY MICROORGA LAB LAB NISMS I&R SPCL STN 47570 PATHOLOGY PATHOLOGY 2 I&R 1 & & EXCPT CYTOLOGY CYTOLOGY MICROORG/ LAB LAB ENZYME/IM CYT SBSQ 79829 A Jesus [facility] 1 ARISTIDES RAMOS CARE/DAY [place] 25 [place] [address] PATHOLOGY PATHOLOGY SURG 1 & & PATHOLOGY CYTOLOGY CYTOLOGY LAB LAB GROSS&UNA ROSCOPIC EXAM ANES 26726 [facility] UPPER GI 1 ANESTH JACY ENDOSCOPY OF THE PROXIMAL BLUE TO DUODENUM ESOPHAGOG 4516 JONO DE LA CRUZ ASTRODUOD 1 [facility] ENOSCOPY INC INC WITH CLOSED BIOPSY EGD 57099 [facility] JR TRANSORAL 1 CONSTANCE [facility] BIOPSY SINGLE/MU LTIPLE SBSQ 43401 A [facility] 1 ARISTIDES RAMOS CARE/DAY PSC 25 MINUTES INITIAL 56563 [facility] 1 [facility] CARE/DAY 70 MINUTES HEPATBL 09170 [facility] D[facility] 1 MEDICAL DEMETRICE IMG IMAGING GLBLDR ASS INITIAL 02591 A [facility] 1 ARISTIDES RAMOS CARE/[place] P[place] 70 [place] [address] [place] ABDOMINAL 1 MEDICAL DEMETRICE REAL IMAGING TIME ASS W/IMAGE LIMITED AMB A0427 [facility] SERVICE 1 AMBULANCE AMBULANCE ALS SERVICE SERVICE EMERGENCY TRANSPORT LEVEL 1 GROUND A0425 [facility] MILEAGE 1 AMBULANCE AMBULANCE [place] [address] [place] ABDOMEN & 1 MEDICAL DEMETRICE PELVIS IMAGING W/O ASS CONTRAST MATERIAL 3D 62637 [place] RENDERING 1 MEDICAL DEMETRICE IMAGING W/INTERP& ASS POSTPROC DIFF WORK STATION CYTP C/V 85033 BIO BIO AUTO THIN 1 REFERNCE REFERNCE LYR LABORATOR LABORATOR PREPJ SCR IES IES MNL RESCR PHYS NONEMERGE A0100 [facility] NCY 1 COMMUNITY TRANSPORT ACTION ATION; TAXI NONEMERGE A0100 [facility] CITY CAB NCY 1 COMMUNITY TRANSPORT ACTION ATION; TAXI COLPOSCOP 17550 [facility] MANZANARES R Y ENTIRE 1 VERA GAMEZ MD VAGINA W/CERVIX IF PRESENT IADNA 52556 BIO BIO NEISSERIA 1 REFERNCE REFERNCE LABORATOR LABORATOR GONORRHOE IES IES AE AMPLIFIED PROBE TQ IADNA NOS 31960 BIO BIO 1 REFERNCE REFERNCE AMPLIFIED LABORATOR LABORATOR PROBE TQ IES IES EACH ORGANISM SCREENING G0202 [place] 1 MEDICAL DEMETRICE MAMMOGRAP IMAGING HY WHITNEY ASS INCL CAD WHEN PERFORMD BLOOD 87257 [facility] GAME[facility] OCCULT 1 VERA GAUTHIER PEROXIDAS E ACTV QUAL FECES 1 DETER NONEMERGE A0100 [facility] 1 COMMUNITY TRANSPORT ACTION ATION; TAXI IADNA 48550 BIO BIO CHLAMYDIA 1 REFERNCE REFERNCE LABORATOR LABORATOR TRACHOMAT IES IES IS AMPLIFIED PROBE TQ CYTP C/V 10038 BIO BIO AUTO THIN 1 REFERNCE REFERNCE LYR LABORATOR LABORATOR PREPJ SCR IES IES MNL RESCR PHYS CYTP 11657 BIO BIO CERVICAL/ 1 REFERNCE REFERNCE VAGINAL LABORATOR LABORATOR REQ IES IES INTERP PHYSICIAN COMPUTER- 58428 [place] AIDED 1 MEDICAL DEMETRICE DETECTION IMAGING ASS SCREENING MAMMOGRAP HY SIMPLE 76115 JONO JONO REPAIR 1 [facility] SCALP/NEC INC INC K/AX/DORITA T/TRUNK 2.5CM/< NONEMERGE A0100 [facility] TRANSP[facility] ACTION ATION; TAXI COLLECTIO 66034 A C TAIWO CHRISTOPHER N VENOUS 1 [place] RAMOS BLOOD PSC VENIPUNCT URE IRON 73889 [facility] BINDING 1 [facility] CAPACITY LIPID 02425 [facility] PANEL 1 [facility] CYANOCOBA 97199 [facility] PRIYA 1 [facility] VITAMIN B-12 [place] [address] [facility] FERRITIN 1 [place] [address] [facility] FOLIC 1 [facility] [place] [address] [facility] IRON 1 [facility] BLOOD 76040 [facility] COUNT 1 [facility] COMPLETE AUTO&AUTO DIFRNTL WBC BASIC 36719 [facility] METABOLIC 1 [employer] PANEL CALCIUM TOTAL INJ J0702 [facility] PETTEY BETAMETHA 1 PHYSICIAN LARON PIZANO S GROUP ACETATE & PHOSPHATE 3 MG ARTHROCEN 22935 [facility] TESIS 1 PHYSICIAN PHYSICIAN ASPIR&/IN S GROUP S GROUP J MAJOR JT/BURSA W/O US NONEMERGE A0100 [facility] NCY 1 COMMUNITY TRANSPORT ACTION ATION; TAXI NONEMERGE A0100 [facility] COMMUNITY TRANSPORT ACTION ATION; [place] [address] JONO DE LA CRUZ THYROXINE 1 [facility] TOTAL INC INC COLLECTIO 87241 JONO DE LA CRUZ N VENOUS 1 [facility] [place] [address] JONO DE LA CRUZ THYROID 1 [facility] STIMULATI INC INC NG HORMONE TSH THYROID 33753 JONO DE LA CRUZ HORM 1 [facility] UPTK/THYR INC INC OID HORMONE BINDING RATIO NONEMERGE A0100 [facility] NCY 1 COMMUNITY TRANSPORT ACTION ATION; TAXI NONEMERGE A0100 [facility] COMMUNITY TRANSPORT ACTION ATION; TAXI RADEX 27457 [facility] SACRUM & 1 MEDICAL DEMETRICE COCCYX IMAGING MINIMUM 2 ASS VIEWS RADEX 58596 [facility] SPINE 1 MEDICAL DEMETRICE LUMBOSACR IMAGING AL ASS MINIMUM 4 VIEWS RADEX 38775 [facility] WRIST 1 MEDICAL DEMETRICE COMPLETE IMAGING MINIMUM 3 ASS VIEWS RADIOLOGI 33928 [facility] C 1 MEDICAL DEMETRICE EXAMINATI IMAGING ON PELVIS ASS 1/2 VIEWS NONEMERGE A0100 [facility] COMMUNITY TRANSPORT ACTION ATION; TAXI CANE INCL E0100 SILVINA SILVINA CANES 0 HOME MED HOME MED ALL EQUIP. L EQUIP. L MATERIAL ADJUSTBLE /FIX W/TIP KNEE L1810 SILVINA [facility]ENTLEYRELL ORTHOSIS 0 HOME MED HOME MED ELASTIC EQUIP. L EQUIP. [place] [address] THE THE SURG 0 [facility] PATHOLOGY [facility] CLIN[facility] FOUNDAT FOUNDAT GROSS&UNA ROSCOPIC EXAM RADIOLOGI 67532 ABENA CAICEDO C EXAM 0 MEDICAL DEMETRICE KNEE IMAGING COMPLETE ASS 4/MORE VIEWS NONEMERGE A0100 [facility] NCY 0 COMMUNITY TRANSPORT ACTION ATION; TAXI NONEMERGE A0100 [facility] NCY 0 COMMUNITY TRANSPORT ACTION ATION; [place] [address] JONO JONO ESTRADIOL 0 [place] [address] JONO JONO THYROID 0 [facility] STIMULATI INC INC NG HORMONE TSH NONEMERGE A0100 [facility] NCY 0 COMMUNITY TRANSPORT ACTION ATION; TAXI COLLECTIO 85307 JONO DE LA CRUZ N VENOUS 0 [facility] BLOOD INC INC VENIPUNCT URE NONEMERGE A0100 [facility] NCY 0 COMMUNITY TRANSPORT ACTION ATION; TAXI SIMPLE 66079 JONO JONO REPAIR 0 [facility] SCALP/NEC INC INC K/AX/DORITA T/TRUNK 2.5CM/< IM ADM 08387 JONO DE LA CRUZ PRQ ID 0 [facility] SUBQ/IM INC INC NJXS 1 VACCINE OPHTH 32126 [facility] 0 XM&EVAL COMPRHNSV ESTAB PT 1/> NONEMERGE A0100 [facility] NCY 0 COMMUNITY TRANSPORT ACTION ATION; TAXI NONEMERGE A0100 [facility] NCY 0 COMMUNITY TRANSPORT ACTION ATION; TAXI URINLS 46493 A Jesus MARAVILLA CHRISTOPHER DIP 0 ARISTIDES RAMOS STICK/TAB PSC LET REAGNT NON-AUTO MICRSCPY LIPID 37705 [facility] PANEL 0 [facility] GLUCOSE 74040 [facility] QUANTITAT 0 [facility] INC JEREMI BLOOD XCPT REAGENT STRIP COLLECTIO 81318 Yury MRAAVILLA, N VENOUS 0 ARISTIDES Cotton BLOOD PSC VENIPUNCT URE NONEMERGE A0100 [facility] NCY 0 COMMUNITY TRANSPORT ACTION ATION; TAXI IADNA 28059 [facility] CHLAMYDIA 0 [employer] TRACHOMAT IS AMPLIFIED PROBE TQ SCREENING 35798 [place], 0 MEDICAL SINCERE MAMMOGRAP IMAGING HY ASSOCIATE BILATERAL S COMPUTER- 01830 [place], AIDED 0 MEDICAL SINCERE DETECTION IMAGING ASSOCIATE SCREENING S MAMMOGRAP HY CYTP C/V 53590 [facility] AUTO THIN 0 [employer] [facility] [employer] LYR PREPJ SCR MNL RESCR PHYS IADNA 67403 [facility] NEISSERIA 0 [facility] INC GONORRHOE AE AMPLIFIED PROBE TQ RADEX HIP 26964 MEDICAL ABDULAZIZ 0 X-RAY INC , UNILATERA LUIS L COMPLETE MINIMUM 2 VIEWS RADEX 18484 [facility] SPINE 0 X-RAY INC , LUMBOSACR LUIS AL 2/3 VIEWS JOINT 95125 [facility] VIEW 2 OR INC. INC. MORE JOINTS RADIOLOGI 45267 UNIV KHOI, K C 0 RADIOLOGY JENNIFER EXAMINATI ASSOC OF ON KNEE OSCAR INC 1/2 VIEWS COLONOSCO 03207 [facility], 0 SARKIS A W/BIOPSY GASTROENT SINGLE/[place] [address] [facility] SURG 0 LUIS SMITH PATHOLOGY MEDICALCE MEDICALCE GROSS&UNA NTER NTER ROSCOPIC EXAM EGD 08318 [facility], TRANSORAL 0 SARKIS A BIOPSY GASTROENT SINGLE/MU EROLOGYAS LTIPLE SOC IMMUNOASS 14212 [facility] AY 0 LUIS SMITH ANALYTE QUAL/SEMI MEDICALCE MEDICALCE QUAL NTER NTER MULTIPLE STEP BLOOD 93325 [facility] COUNT 0 LUIS SMITH COMPLETE AUTO&AUTO MEDICALCE MEDICALCE DIFRNTL NTER NTER WBC COLLECTIO 08703 [facility] N VENOUS 0 LUIS HENAOTH BLOOD VENIPUNCT MEDICALCE MEDICALCE URE NTER NTER KNEE L1830 JONO DE LA CRUZ ORTHOSIS 0 [facility] IMMOBLIZE INC INC R CANVAS LONGTUDNL PREFAB THER 37898 JON[facility] DE LA CRU[facility] PROPH/DX 0 [facility] NJX IV INC INC PUSH SINGLE/1S T SBST/DRUG BLOOD 53797 JON[facility] DE [facility] COUNT 0 [facility] COMPLETE INC INC AUTO&AUTO DIFRNTL WBC THERAPEUT 57282 [facility] DE [facility] IC 0 [facility] INJECTION INC INC IV PUSH EACH NEW DRUG BASIC 14614 JONO DE LA CRU[facility] METABOLIC 0 [facility] [address] JONO DE LA CR[facility]Z INFUSION 0 [facility] THER INC INC PROPH ADDL SEQUENTIA L TO 1 HR AMBULANCE A0429 [facility] SERVICE 0 AMBULANCE AMBULANCE BLS SERVICE SERVICE EMERGENCY TRANSPORT GROUND A0425 [facility] MILEAGE 0 AMBULANCE AMBULANCE PER SERVICE SERVICE STATUTE MILE CT LOWER 05753 MEDICAL [facility] EXTREMITY 0 X-RAY INC DANIELITO W/O T CONTRAST MATERIAL INITIAL 47846 [facility] 0 [facility]/DAY [place] [address] [place] [address] MEDICAL MELANIE, ABDOMEN 0 X-RAY INC EHSAN T W/CONTRAS T MATERIAL CT PELVIS 63979 MEDICAL MELANIE, 0 X-RAY INC EHSAN T W/CONTRAS T MATERIAL RADIOLOGI 96269 RADIOLOGY Jesus RUBY EXAM 9 JEM L KNEE ASSOCIATE COMPLETE S PSC 4/MORE VIEWS HEPATIC [address] FUNCTION 8 LUIS SMITH PANEL MEDICALCE MEDICALCE NTER NTER DRUG [address] [place] 8 LUIS SMITH [place] MEDICALCE MEDICALCE TOTAL NTER NTER BLOOD [address] COUNT 8 LUISDARA SMITH COMPLETE AUTO&AUTO MEDICALCE MEDICALCE DIFRNTL NTER NTER WBC ECG 65632 [facility], ROUTINE 8 HEART & DANIELLE ECG VASCULAR W/LEAST CENTER 12 [facility] INC I&R ONLY BLOOD 54992 [facility] COUNT 8 Y Y [facility] AUTO&AUTO INC. INC. DIFRNTL WBC RADIOLOGI 72610 [facility] C 8 Y Y EXAMINATI [facility] ON TIB[place] INC. INC. & FIBULA 2 VIEWS C-REACTIV 82788 [facility] E PROTEIN [address] [facility] INC. INC. RADEX 18168 [facility] FOOT 8 Y Y [facility] MINIMUM 3 INC. INC. VIEWS SEDIMENTA 26984 [facility] TION RATE 8 Y Y [facility] AUTOMATED INC. INC. Encounters Encounter Start End Date Code Location Performer Type Date OFFICE 08210 [facility] OUTPATIEN 7 7 [facility] 15 PSC MINUTES OFFICE 02576 [facility] 7 7 [place] T VISIT [facility]INIC [address] ACCESS 6 6 [facility] J[facility]O - 6 6 [facility] JONO - 6 6 [facility] T OFF[facility] 71988 [facility] OUTPATIEN 6 6 PHYSICIAN DISHA T VISIT S GROUP 15 MINUTES HOSPITAL JONO - 6 6 [facility] T OFFICE 05199 [facility] VAL[facility] OUTPATIEN 6 6 [facility] 15 PSC MINUTES OFFICE 15744 [facility] OUTPATIEN 6 6 MD VIKA, T VISIT PSC 15 MINUTES HOSPITAL JONO - 6 6 [facility] OUTPATIEN INC T OFFICE 20822 CIPRIANO SO OUTPATIEN 6 6 ARON CUR T VISIT CLINIC 15 PSC MINUTES OFFICE 36449 [facility] OUTMORGAN 6 6 MD VIKA, T VISIT PSC 15 MINUTES HOSPITAL JONO - 6 6 [facility] OUTPATIEN INC T HOSPITAL JONO - 6 6 [facility] OUTPATIEN INC T EMERGENCY 98541 JONO 6 6 [facility] T VISIT LOW/MODER SEVERITY HOSPITAL JONO - 6 6 [facility] OUTPATIEN INC T OFFICE 87135 [facility] HOOKER OUTPATIEN 6 6 PHYSICIAN T VISIT S GROUP 25 MINUTES OFFICE 38049 [facility] OUTPATIEN 6 6 MD VIKA, T VISIT PSC 15 MINUTES HOSPITAL JONO - 6 6 [facility] OUTPATIEN INC T CRITICAL ST. ACCESS 6 6 [facility] EMERGENCY [address] [place] [address] T VISIT MODERATE SEVERITY OFFICE 76088 AJ [facility] OUTPATIEN 6 6 MD VIKA, T VISIT PSC 15 MINUTES HOSPITAL JONO - 6 6 [facility] OUTPATIEN INC T OFFICE 36133 ALBER HILDA STEVENS OUTPATIEN 6 6 T NEW 45 MINUTES OFFICE 97707 OSCAR RUBY OUTPATIEN 6 6 ORTHOPAED ADA T VISIT ICS & 15 SPORTS MINUTES OFFICE 91759 AJ VILLANUEVA OUTPATIEN 6 6 MD VIKA, T NEW 45 PSC MINUTES HOSPITAL JONO - 6 6 [facility] OUTPATIEN INC T OFFICE 04008 OSCAR RUBY OUTPATIEN 5 5 ORTHOPAED ADA T NEW 30 ICS & MINUTES SPORTS OFFICE 20476 [facility] PETTEY OUTPATIEN 5 5 PHYSICIAN JAM T VISIT S GROUP 15 MINUTES HOSPITAL JONO - 5 5 [facility] OUTPATIEN INC T EMERGENCY 37008 [facility] THO HUHN THO 4 4 DEPARTMEN T VISIT MODERATE SEVERITY [facility]OSPITAL [facility] - 1 1 [facility]- EMERGENCY 63409 SHAILESH ROBERTS DEPT 1 1 EMERGENCY III FERMIN VISIT SERVICES HIGH SEVERITY& THREAT [facility] JONO - 1 1 [facility] INPATIENT INC EMERGENCY 11221 SHAILESH MARIN DEPT 1 1 EMERGENCY UNA VISIT SERVICES HIGH SEVERITY& THREAT FUN OFFICE 74833 [facility] 1 1 VERA GAUTHIER T VISIT 15 MINUTES [facility]OSP[facility] - 1 1 [facility] T OFFICE 74331 [facility] 1 1 VERA GAUTHIER T VISIT 40 MINUTES EMERGENCY 85583 [facility] 1 1 [facility] DEPARTMEN INC T VISIT LOW/MODER SEVERITY EMERGENCY 19801 SHAILESH ELKINS 1 1 EMERGENCY DEPARTMEN SERVICES T VISIT HIGH/URGE NT SEVERITY [facility] - 1 1 [facility] OUTPATIEN INC T EMERGENCY 86695 [facility] 1 1 [facility] DEPARTMEN INC T VISIT LOW/MODER SEVERITY OFFICE 53159 A C OUTPATIEN 1 1 ARISTIDES RAMOS T VISIT PSC 15 MINUTES OFFICE 60807 [facility] OUTPATIEN 1 1 PHYSICIAN LARRY T VISIT S GROUP 15 MINUTES OFFICE 25102 [facility] OUTPATIPARESH 1 1 VERA GAUTHIER T VISIT 15 MINUTES [facility]OSPITAL [facility] - 1 1 [facility] OUTPATI[facility] INC T EMERGENCY 74399 [facility] 1 1 [facility] DEPARTMEN INC T VISIT LOW/MODER SEVERITY EMERGENCY 65597 SHAILESH MARIN 1 1 EMERGENCY UNA DEPARTMEN SERVICES T VISIT HIGH/URGE NT SEVERITY [facility]OSP[facility] - 1 1 [facility] OUTPATIEN INC T OFFICE 93794 [facility] OUTPATIEN 0 0 PHYSICIAN JAM T VISIT S GROUP 15 MINUTES HOSPITAL [facility] - 0 0 [facility] T FOUNDAT OFFICE 57646 [facility] OUTPATIEN 0 0 PHYSICIAN JAM T NEW 45 S GROUP MINUTES OFFICE 48400 [facility] OUT[facility] 0 0 VERA GAUTHIER T VISIT 15 MINUTES OFFICE 58458 [facility] OUT[facility] 0 0 VERA GAUTHIER T VISIT 15 MINUTES [facility] - 0 0 [facility] OUTPATI[facility] INC T OFFICE 52917 [facility] 0 0 VERA GAUTHIER T VISIT 15 MINUTES [facility]OSPITAL [facility] - 0 0 [facility] OUTPATIEN INC T EMERGENCY 10522 [facility] 0 0 [facility] DEPARTMEN INC T VISIT LOW/MODER SEVERITY EMERGENCY 33818 SHAILESH HORAN BAB 0 0 EMERGENCY DEPARTMEN SERVICES T VISIT MODERATE SEVERITY OFFICE 90610 Yury WHITE OUTPATIEN 0 0 ARISTIDES RAMOS T VISIT PSC 15 MINUTES OFFICE 65281 YOVANNY HAIRSTON OUTPATIEN 0 0 RICHARD RAMOS T NEW 45 MINUTES EMERGENCY 09293 HARVEY GUZMAN AYAH 0 0 EMERGENCY DEPARTMEN T VISIT SPECIALIS MODERATE SEVERITY OFFICE 38196 Yury MARAVILLA OUTPATIEN 0 0 ARISTIDES Cotton T VISIT 5 PSC MINUTES OFFICE 49214 [facility] 0 0 VERA Madison T VISIT 15 MINUTES OFFICE 90169 [facility], [facility] 0 0 VERA [place] T VISIT 15 MINUTES HOSPITAL J[facility] - 0 0 [facility] OUTPATIEN INC T OFFICE 59786 [facility] 0 0 SARKIS A T VISIT GASTROENT 15 EROLOGYAS MINUTES SOC [facility], 0 0 DIST OTHER HEALTH DEPT [facility] EMERGENCY 60651 QUALIFE JOSELO, 0 0 EMERGENCY SAMUEL M DEPARTMEN T VISIT SPECIALIS MODERATE TS SEVERITY OFFICE 17530 [facility] OUTPATI[facility] 0 0 Y T VISIT 5 [facility]PITAL [facility] - 0 [address] [facility] - OTHER 0 0 [facility] NT [facility], 0 0 DIST OTHER HEALTH DEPT [facility] ST - OTHER 0 0 [facility] OFFICE 35208 [facility] 0 0 SARKIS A T NEW 45 GASTROENT MINUTES EROLOGYAS SOC EMERGENCY 60271 SHAILESH GUAJARDO, 0 0 EMERGENCY BOSSMAN M DEPARTMEN SERVICES T VISIT HIGH/URGE ASSOCIATE NT S SEVERITY [facility]OSPITAL [facility] - 0 0 [facility] OUTPATIEN INC T EMERGENCY 42504 QUALIFELucila LOVE, DEPT 0 0 EMERGENCY JOSEPH M VISIT HIGH SPECIALIS SEVERITY& TS THREAT [facility] - 0 0 [facility] OUTPATIEN INC T EMERGENCY 98035 SHAILESH HORAN, 0 0 EMERGENCY HONG DEPARTMEN SERVICES O T VISIT HIGH/URGE ASSOCIATE NT S SEVERITY [facility]OSPITAL [facility] - 8 8 [facility] OFF[facility] 35939 [facility] 8 8 Y T VISIT HOSPITAL [address] [facility] 8 8 [facility] 92754 [facility], 8 8 [facility] T VISIT ON MODERATE SEVERITY [facility] UNIVERSIT - 8 8 Y [facility] T INC. EMERGENCY [id number] UNIVERSIT 8 8 Y [facility] T VISIT INC. LIMITED/M [facility] UNIVERSIT [facility] 8 8 Y [facility] T INC. OFFICE [id number] [facility] 8 8 Y T V[facility]IT [facility] 15 INC. MINUTES
--- OUTSIDE RECORDS SUMMARY | 2016-09-03 16:28 | External Medical Summary Rpt ---
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 [facility] 1 S LIBRA CARE/DAY HEALTHCAR 15 E IN MINUTES SBSQ 66795 [facility] 1 S LIBRA CARE/DAY HEALTHCAR 15 E IN MINUTES RADIOLOGI 98893 [facility] 1 X-RAY INC SARAHY EXAMINATI ON CHEST SINGLE VIEW FRONTAL SBSQ 33236 [facility] 1 S COL CARE/DAY HEALTHCAR 25 E IN MINUTES INSJ PRPH 15011 MEDICAL JULIANO CVC W/O 1 X-RAY INC FRA SUBQ PORT/TOBACCO DIPPER AGE 5 YR/> US VASC 83524 MEDICAL JULIANO ACCESS 1 X-RAY INC FRA SITS VSL PATENCY NDL ENTRY FLUORO 67376 MEDICAL JULIANO CENTRAL 1 X-RAY INC FRA VENOUS ACCESS DEV PLACEMENT INTUBATIO 38821 OBSTETRIC ELLER AYAH N 1 ENDOTRACH ANESTHESI EAL A ASSOCIA EMERGENCY PROCEDURE RADIOLOGI 97223 [facility] 1 X-RAY INC CONSTANCE EXAMINATI ON CHEST SINGLE VIEW FRONTAL SBSQ 80297 [facility] 1 S COL CARE/DAY HEALTHCAR 35 E IN MINUTES RADIOLOGI 10508 MEDICAL GIORGIOABRAZO [facility] 1 X-RAY INC UNA EXAMINATI ON CHEST SINGLE VIEW FRONTAL CRITICAL 21591 [facility] CARE 1 EMERGENCY ILL/INJUR ED SPECIALIS PATIENT INIT 30-74 MIN HOSPITAL 95673 A C JESSICA DISCHARGE 1 ARISTIDES MD NANDA DAY PSC MANAGEMEN T 30 MIN/< SBSQ 04333 A Jesus [facility] 1 ARISTIDES RAMOS CARE/DAY PSC 15 MINUTES SBSQ 94064 [facility] 1 ARISTIDES RAMOS CARE/DAY PSC 15 MINUTES RADEX 82163 [facility] MAR[facility]ER SPINE 1 MEDICAL DEMETRICE LUMBOSACR IMAGING AL 2/3 ASS VIEWS SPECIAL 15753 PATHOLOGY PATHOLOGY STAIN 1 & & GROUP 1 CYTOLOGY CYTOLOGY MICROORGA LAB LAB NISMS I&R SPCL STN 08150 PATHOLOGY PATHOLOGY 2 I&R 1 & & EXCPT CYTOLOGY CYTOLOGY MICROORG/ LAB LAB ENZYME/IM CYT SBSQ 41897 A Jesus [facility] 1 ARISTIDES RAMOS CARE/DAY [place] 25 [place] [address] PATHOLOGY PATHOLOGY SURG 1 & & PATHOLOGY CYTOLOGY CYTOLOGY LAB LAB GROSS&UNA ROSCOPIC EXAM ANES 85116 [facility] SUSAN UPPER GI 1 ANESTH JAYC ENDOSCOPY OF THE PROXIMAL BLUE TO DUODENUM ESOPHAGOG 4516 JONO DE LA CRUZ ASTRODUOD 1 [facility] ENOSCOPY INC INC WITH CLOSED BIOPSY EGD 19300 FRANC[facility] SING[facility] JR TRANSORAL [address] [facility] BIOPSY SINGLE/MU LTIPLE SBSQ 29037 [facility] 1 ARISTIDES RAMOS CARE/DAY PSC 25 MINUTES INITIAL [address] [facility] 1 [facility] CARE/DAY 70 MINUTES HEPATBL 10582 [facility] MARIFER DUX SYS 1 MEDICAL DEMETRICE IMG IMAGING GLBLDR ASS INITIAL 68448 [facility] 1 ARISTIDES RAMOS CARE/[place] P[place] [address] [place] [address] [place] MARIFER ABDOMINAL 1 MEDICAL DEMETRICE REAL IMAGING TIME ASS W/IMAGE LIMITED AMB A0427 [facility] SERVICE 1 AMBULANCE AMBULANCE ALS SERVICE SERVICE EMERGENCY TRANSPORT LEVEL 1 GROUND A0425 [facility] MILEAGE 1 AMBULANCE AMBULANCE [place] [address] [facility] MARIFER ABDOMEN & 1 MEDICAL DEMETRICE PELVIS IMAGING W/O ASS CONTRAST MATERIAL 3D 82101 [facility] MAR[facility]ER RENDERING 1 MEDICAL DEMETRICE IMAGING W/INTERP& ASS POSTPROC DIFF WORK STATION CYTP C/V 69324 BIO BIO AUTO THIN 1 REFERNCE REFERNCE LYR LABORATOR LABORATOR PREPJ SCR IES IES MNL RESCR PHYS NONEMERGE A0100 [facility] NCY 1 COMMUNITY TRANSPORT ACTION ATION; TAXI NONEMERGE A0100 [facility] CAB NCY 1 COMMUNITY TRANSPORT ACTION ATION; TAXI COLPOSCOP 38625 [facility] MANZANARES R Y ENTIRE 1 VERA GAMEZ MD VAGINA W/CERVIX IF PRESENT IADNA 89084 BIO BIO NEISSERIA 1 REFERNCE REFERNCE LABORATOR LABORATOR GONORRHOE IES IES AE AMPLIFIED PROBE TQ IADNA NOS 70667 BIO BIO 1 REFERNCE REFERNCE AMPLIFIED LABORATOR LABORATOR PROBE TQ IES IES EACH ORGANISM SCREENING G0202 [facility] MAR[facility]ER 1 MEDICAL DEMETRICE MAMMOGRAP IMAGING HY WHITNEY ASS INCL CAD WHEN PERFORMD BLOOD 73920 [facility] OCCULT 1 VERA GAUTHIER PEROXIDAS E ACTV QUAL FECES 1 DETER NONEMERGE A0100 [facility] 1 COMMUNITY TRANSPORT ACTION ATION; TAXI IADNA 76201 BIO BIO CHLAMYDIA 1 REFERNCE REFERNCE LABORATOR LABORATOR TRACHOMAT IES IES IS AMPLIFIED PROBE TQ CYTP C/V 44169 BIO BIO AUTO THIN 1 REFERNCE REFERNCE LYR LABORATOR LABORATOR PREPJ SCR IES IES MNL RESCR PHYS CYTP 71721 BIO BIO CERVICAL/ 1 REFERNCE REFERNCE VAGINAL LABORATOR LABORATOR REQ IES IES INTERP PHYSICIAN COMPUTER- 38508 [place] MARIFER AIDED 1 MEDICAL DEMETRICE DETECTION IMAGING ASS SCREENING MAMMOGRAP HY SIMPLE 21768 JONO JONO REPAIR 1 [facility] SCALP/NEC INC INC K/AX/DORITA T/TRUNK 2.5CM/< NONEMERGE A0100 [facility] CLAY COUNTYY 1 COMMUNITY TRANSPORT ACTION ATION; TAXI COLLECTIO 25760 A C TAIWO CHRISTOPHER N VENOUS 1 ARISTIDES RAMOS BLOOD PSC VENIPUNCT URE IRON 66197 [facility] BINDING 1 [facility] CAPACITY LIPID 00268 [facility] PANEL 1 [facility] CYANOCOBA 89890 [facility] PRIYA 1 [facility] VITAMIN B-12 [place] [address] [facility] FERRITIN 1 [place] [address] [facility] FOLIC 1 [facility] [place] [address] [facility] IRON 1 [facility] BLOOD 27208 [facility] COUNT 1 [facility] COMPLETE AUTO&AUTO DIFRNTL WBC BASIC 07922 [facility] METABOLIC 1 [facility] [employer] Song INC The [employer]aked Song INC PANEL CALCIUM TOTAL INJ J0702 [facility] PETTEY BETAMETHA 1 PHYSICIAN LARON PIZANO S GROUP ACETATE & PHOSPHATE 3 MG ARTHROCEN 63303 [facility] TESIS 1 PHYSICIAN PHYSICIAN ASPIR&/IN S GROUP S GROUP J MAJOR JT/BURSA W/O US NONEMERGE A0100 [facility] NCY 1 COMMUNITY TRANSPORT ACTION ATION; TAXI NONEMERGE A0100 [facility] CLAY COUNTYY 1 COMMUNITY TRANSPORT ACTION ATION; [place] [address] JONO DE LA CRUZ THYROXINE 1 [facility] TOTAL INC INC COLLECTIO 90808 JONO DE LA CRUZ N VENOUS 1 [facility] [address] JONO DE LA CRUZ THYROID 1 [facility] HOSP STIMULATI INC INC NG HORMONE TSH THYROID 32121 JONO DE LAC RUZ HORM 1 [facility] HOSP UPTK/THYR INC INC OID HORMONE BINDING RATIO NONEMERGE A0100 [facility] NCY 1 COMMUNITY TRANSPORT ACTION ATION; TAXI NONEMERGE A0100 [facility] CLAY COUNTYY 1 COMMUNITY TRANSPORT ACTION ATION; TAXI RADEX 11766 [facility] SACRUM & 1 MEDICAL DEMETRICE COCCYX IMAGING MINIMUM 2 ASS VIEWS RADEX 23344 [facility] SPINE 1 MEDICAL DEMETRICE LUMBOSACR IMAGING AL ASS MINIMUM 4 VIEWS RADEX 38299 [facility] WRIST 1 MEDICAL DEMETRICE COMPLETE IMAGING MINIMUM 3 ASS VIEWS RADIOLOGI 44658 [facility] C 1 MEDICAL DEMETRICE EXAMINATI IMAGING ON PELVIS ASS 1/[address] [facility] CLAY COUNTYY 0 COMMUNITY TRANSPORT ACTION ATION; TAXI CANE INCL E0100 SILVINA SILVINA CANES 0 HOME MED HOME MED ALL EQUIP. L EQUIP. L MATERIAL ADJUSTBLE /FIX W/TIP KNEE L1810 [facility] 0 HOME MED HOME MED ELASTIC EQUIP. L EQUIP. [place] [address] THE THE SURG 0 [facility] PATHOLOGY [facility] F[facility] FOUNDAT GROSS&UNA ROSCOPIC EXAM RADIOLOGI 41177 BAENA CAICEDO C EXAM 0 MEDICAL DEMETRICE KNEE IMAGING COMPLETE ASS 4/MORE VIEWS NONEMERGE A0100 [facility] CAB NCY 0 COMMUNITY TRANSPORT ACTION ATION; TAXI NONEMERGE A0100 [facility] NCY 0 COMMUNITY TRANSPORT ACTION ATION; [place] [address] JONO JONO ESTRADIOL 0 [place] [address] JONO JONO THYROID 0 [facility] STIMULATI INC INC NG HORMONE TSH NONEMERGE A0100 [facility] NCY 0 COMMUNITY TRANSPORT ACTION ATION; TAXI COLLECTIO 35426 JONO DE LA CRUZ N VENOUS 0 [facility] BLOOD INC INC VENIPUNCT URE NONEMERGE A0100 [facility] NCY 0 COMMUNITY TRANSPORT ACTION ATION; TAXI SIMPLE 06981 JONO JONO REPAIR 0 [facility] SCALP/NEC INC INC K/AX/DORITA T/TRUNK 2.5CM/< IM ADM 10359 JONO DE LA CRUZ PRQ ID 0 [facility] SUBQ/IM INC INC NJXS 1 VACCINE OPHTH 78821 [facility] 0 XM&EVAL COMPRHNSV ESTAB PT 1/> NONEMERGE A0100 [facility] CAB NCY 0 COMMUNITY TRANSPORT ACTION ATION; TAXI NONEMERGE A0100 [facility] NCY 0 COMMUNITY TRANSPORT ACTION ATION; TAXI URINLS 01123 A Jesus MARAVILLA CHRISTOPHER DIP 0 ARISTIDES RAMOS STICK/TAB PSC LET REAGNT NON-AUTO MICRSCPY LIPID 96910 [facility] PANEL 0 [facility] GLUCOSE 40040 [facility] QUANTITAT 0 [facility] JEREMI BLOOD XCPT REAGENT STRIP COLLECTIO 31484 Yury MARAVILLA, N VENOUS 0 ARISTIDES Cotton BLOOD PSC VENIPUNCT URE NONEMERGE A0100 [facility] [place] CAB NCY 0 COMMUNITY TRANSPORT ACTION ATION; TAXI IADNA 65201 [facility] CHLAMYDIA 0 [facility] INC [facility] INC TRACHOMAT IS AMPLIFIED PROBE TQ SCREENING 57835 [place] MARIFER, 0 MEDICAL SINCERE MAMMOGRAP IMAGING HY ASSOCIATE BILATERAL S COMPUTER- 65821 [place] MARIFER, AIDED 0 MEDICAL SINCERE DETECTION IMAGING ASSOCIATE SCREENING S MAMMOGRAP HY CYTP C/V 09115 [facility] AUTO THIN 0 [facility] The Naked Song INC LYR PREPJ SCR MNL RESCR PHYS IADNA 19527 [facility] NEISSERIA 0 [facility] INC GONORRHOE AE AMPLIFIED PROBE TQ RADEX HIP 71476 MEDICAL ABDULAZIZ 0 X-RAY INC , UNILATERA LUIS L COMPLETE MINIMUM 2 VIEWS RADEX 56333 [facility] SPINE 0 X-RAY INC , LUMBOSACR LUIS AL 2/3 VIEWS JOINT 70175 [facility] VIEW 2 OR INC. INC. MORE JOINTS RADIOLOGI 08053 UN[facility] KHOI, K C 0 RADIOLOGY JENNIFER EXAMINATI ASSOC OF ON KNEE OSCAR INC 1/2 VIEWS COLONOSCO 11955 [facility], 0 SARKIS A W/BIOPSY GASTROENT SINGLE/[place] [address] [facility] SURG 0 LUIS SMITH PATHOLOGY MEDICALCE MEDICALCE GROSS&UNA NTER NTER ROSCOPIC EXAM EGD 15572 [facility], TRANSORAL 0 SARKIS A BIOPSY GASTROENT SINGLE/MU EROLOGYAS LTIPLE SOC IMMUNOASS 66617 [facility] AY 0 LUIS SMITH ANALYTE QUAL/SEMI MEDICALCE MEDICALCE QUAL NTER NTER MULTIPLE STEP BLOOD 32250 [facility] COUNT 0 LUIS SMITH COMPLETE AUTO&AUTO MEDICALCE MEDICALCE DIFRNTL NTER NTER WBC COLLECTIO 98073 [facility] N VENOUS 0 LUIS HENAOTH BLOOD VENIPUNCT MEDICALCE MEDICALCE URE NTER NTER KNEE L1830 [facility] ORTHOSIS 0 [facility] IMMOBLIZE INC INC R CANVAS LONGTUDNL PREFAB THER 98818 [facility] PROPH/DX 0 [facility] NJX IV INC INC PUSH SINGLE/1S T SBST/DRUG BLOOD 59367 [facility] COUNT 0 [facility] COMPLETE INC INC AUTO&AUTO DIFRNTL WBC THERAPEUT 40644 [facility] IC 0 [facility] INJECTION INC INC IV PUSH EACH NEW DRUG BASIC 33990 JON[facility] DE LA [facility] METABOLIC 0 [facility] [address] JONO DE LA CR[facility]Z INFUSION 0 [facility] THER INC INC PROPH ADDL SEQUENTIA L TO 1 HR AMBULANCE A0429 [facility] SERVICE 0 AMBULANCE AMBULANCE BLS SERVICE SERVICE EMERGENCY TRANSPORT GROUND A0425 [facility] MILEAGE 0 AMBULANCE AMBULANCE PER SERVICE SERVICE STATUTE MILE [facility] LOWER 89995 [facility] EXTREMITY 0 X-RAY INC DANIELITO W/O T CONTRAST MATERIAL INITIAL 19076 [facility] ALLIANCE 0 [facility]/DAY [place] [address] [place] [address] MEDICAL MELANIE, ABDOMEN 0 X-RAY INC EHSAN T W/CONTRAS T MATERIAL CT PELVIS 69738 MEDICAL MELANIE, 0 X-RAY INC EHSAN T W/CONTRAS T MATERIAL RADIOLOGI 55270 RADIOLOGY Jesus RUBY EXAM 9 JEM L KNEE ASSOCIATE COMPLETE S PSC 4/MORE VIEWS HEPATIC [address] FUNCTION 8 LUIS SMITH PANEL MEDICALCE MEDICALCE NTER NTER DRUG [address] [place] 8 LUIS SMITH [place] MEDICALCE MEDICALCE TOTAL NTER NTER BLOOD [address] COUNT 8 LUISDARA SMITH COMPLETE AUTO&AUTO MEDICALCE MEDICALCE DIFRNTL NTER NTER WBC ECG 14041 [facility], ROUTINE 8 HEART & DANIELLE ECG VASCULAR W/LEAST CENTER 12 [facility] INC I&R ONLY BLOOD 16240 [facility] COUNT 8 Y Y [facility] AUTO&AUTO INC. INC. DIFRNTL WBC RADIOLOGI 75343 [facility] C 8 Y Y EXAMINATI [facility] ON [facility] INC. INC. & FIBULA 2 VIEWS C-REACTIV 74036 [facility] E PROTEIN 8 Y Y [facility] INC. INC. RADEX 03480 [facility] FOOT 8 Y Y [facility] MINIMUM 3 INC. INC. VIEWS SEDIMENTA 96683 [facility] TION RATE 8 Y Y [facility] AUTOMATED INC. INC. Encounters Encounter Start End Date Code Location Performer Type Date OFFICE 11877 [facility]RI[facility]O TREJOON OUTPATIEN 7 7 [facility] T VIS[facility]IN[facility] 15 PSC MINUTES OFFICE 34439 [facility] 7 7 [facility] T VISIT CLINIC [address] [facility] 6 6 [facility] JONO - 6 6 [facility] OUTPATI[facility] JONO - 6 6 [facility] T OFFICE 82155 [facility] 6 6 PHYSICIAN DISHA T VISIT S GROUP 15 MINUTES HOSPITAL JONO - 6 6 [facility] T OFFICE 04787 CIPRIANO VALIENTE OUTPATIEN 6 6 [facility] CLINIC 15 PSC MINUTES OFFICE 57306 AJ WEATHERS OUTPATIEN 6 6 MD VIKA, T VISIT PSC 15 MINUTES HOSPITAL JONO - 6 6 [facility] OUTPATIEN INC T OFFICE 51620 CIPRIANO SO OUTPATIEN 6 6 ARON CUR T VISIT CLINIC 15 PSC MINUTES OFFICE 50627 AJ WEATHERS OUTMORGAN 6 6 MD VIKA, T VISIT PSC 15 MINUTES HOSPITAL JONO - 6 6 [facility] OUTPATIEN INC T HOSPITAL JONO - 6 6 [facility] OUTPATIEN INC T EMERGENCY 05293 JONO 6 6 [facility] T VISIT LOW/MODER SEVERITY HOSPITAL JONO - 6 6 [facility] OUTPATIEN INC T OFFICE 70747 [facility] HOOKER OUTPATIEN 6 6 PHYSICIAN T VISIT S GROUP 25 MINUTES OFFICE 19307 AJ WEATHERS OUTPATIEN 6 6 MD VIKA, T VISIT PSC 15 MINUTES HOSPITAL JONO - 6 6 [facility] OUTPATIEN INC T CRITICAL ST. ACCESS 6 6 [facility] EMERGENCY [address] [place] [address] T VISIT MODERATE SEVERITY OFFICE 78263 AJ WEATHERS OUTPATIEN 6 6 MD VIKA, T VISIT PSC 15 MINUTES HOSPITAL JONO - 6 6 [facility] OUTPATIEN INC T OFFICE 12406 ALBER HILDA STEVENS OUTPATIEN 6 6 T NEW 45 MINUTES OFFICE 45486 OSCAR RUBY OUTPATIEN 6 6 ORTHOPAED ADA T VISIT ICS & 15 SPORTS MINUTES OFFICE 60592 AJ VILLANUEVA OUTPATIEN 6 6 MD VIKA, T NEW 45 PSC MINUTES HOSPITAL JONO - 6 6 [facility] OUTPATIEN INC T OFFICE 96050 OSCAR RUBY OUTPATIEN 5 5 ORTHOPAED ADA T NEW 30 ICS & MINUTES SPORTS OFFICE 65976 [facility] PETTEY OUTPATIEN 5 5 PHYSICIAN JAM T VISIT S GROUP 15 MINUTES HOSPITAL JONO - 5 5 [facility] OUTPATIEN INC T EMERGENCY 88411 [facility] THO HUHN THO 4 4 DEPARTMEN T VISIT MODERATE SEVERITY HOSPITAL [facility] - 1 1 [facility]PATIENT [facility]- EMERGENCY 49283 SHAILESH ROBERTS DEPT 1 1 EMERGENCY III FERMIN VISIT SERVICES HIGH SEVERITY& THREAT [facility] JONO - 1 1 [facility] INPATIENT INC EMERGENCY 74395 SHAILESH MARIN DEPT 1 1 EMERGENCY UNA VISIT SERVICES HIGH SEVERITY& THREAT FUN OFFICE 07189 [facility] OUTPATIEN 1 1 VERA GAUTHIER T VISIT 15 MINUTES HOSPITAL JONO - 1 1 [facility] OUTPATIEN INC T OFFICE 55801 [facility] OUTPATIEN 1 1 VERA GAUTHIER T VISIT 40 MINUTES EMERGENCY 31187 JONO 1 1 [facility] DEPARTMEN INC T VISIT LOW/MODER SEVERITY EMERGENCY 30509 SHAILESH ELKINS 1 1 EMERGENCY DEPARTMEN SERVICES T VISIT HIGH/URGE NT SEVERITY HOSPITAL JONO - 1 1 [facility] OUTPATIEN INC T EMERGENCY 20208 JONO 1 1 [facility] DEPARTMEN INC T VISIT LOW/MODER SEVERITY OFFICE 67741 A C OUTPATIEN 1 1 ARISTIDES RAMOS T VISIT PSC 15 MINUTES OFFICE 38123 [facility] PETTEY OUTPATIEN 1 1 PHYSICIAN LARRY T VISIT S GROUP 15 MINUTES OFFICE 21389 [facility] OUTPATIPARESH 1 1 VERA GAUTHIER T VISIT 15 MINUTES HOSPITAL JONO - 1 1 [facility] OUTPATIEN INC T EMERGENCY 21803 JONO 1 1 [facility] DEPARTMEN INC T VISIT LOW/MODER SEVERITY EMERGENCY 05516 SHAILESH MARIN 1 1 EMERGENCY NUA DEPARTMEN SERVICES T VISIT HIGH/URGE NT SEVERITY HOSPITAL JONO - 1 1 [facility] OUTPATIEN INC T OFFICE 68326 [facility] PETTEY OUTPATIEN 0 0 PHYSICIAN JAM T VISIT S GROUP 15 MINUTES HOSPITAL THE - 0 0 [place] [facility] T FOUNDAT OFFICE 52783 [facility] PETTEY OUTPATIEN 0 0 PHYSICIAN JAM T NEW 45 S GROUP MINUTES OFFICE 82780 [facility] OUTPATIEN 0 0 VERA GAUTHIER T VISIT 15 MINUTES OFFICE 56632 [facility] OUTPATIEN 0 0 VERA GAUTHIER T VISIT 15 MINUTES HOSPITAL JONO - 0 0 [facility] OUTPATIEN INC T OFFICE 84758 [facility] OUTPATIEN 0 0 VERA GAUTHIER T VISIT 15 MINUTES HOSPITAL JONO - 0 0 [facility] OUTPATIEN INC T EMERGENCY 64961 JONO 0 0 [facility] DEPARTMEN INC T VISIT LOW/MODER SEVERITY EMERGENCY 53181 SHAILESH HORAN BAB 0 0 EMERGENCY DEPARTMEN SERVICES T VISIT MODERATE SEVERITY OFFICE 17327 Yury WHITE OUTPATIEN 0 0 ARISTIDES RAMOS T VISIT PSC 15 MINUTES OFFICE 70192 YOVANNY HAIRSTON OUTPATIEN 0 0 RICHARD RAMOS T NEW 45 MINUTES EMERGENCY 65601 HARVEY GUZMAN AYAH 0 0 EMERGENCY DEPARTMEN T VISIT SPECIALIS MODERATE SEVERITY OFFICE 66407 Yury MARAVILLA OUTPATIEN 0 0 ARISTIDES Cotton T VISIT 5 PSC MINUTES OFFICE 08407 LEIGHTON GAMEZ OUTPATIEN 0 0 VERA Madison T VISIT 15 MINUTES OFFICE [id number] LEIGHTON GAMEZ, [facility] 0 0 VERA [place] T VISIT 15 MINUTES HOSPITAL JONO - 0 0 [facility] OUTPATIEN INC T OFFICE [id number] [facility] 0 0 SARKIS A T VISIT GASTROENT 15 EROLOGYAS MINUTES SOC HOME [facility], 0 0 DIST OTHER HEALTH DEPT [facility] EMERGENCY 79014 QUALIFE JOSELO, 0 0 EMERGENCY SAMUEL M DEPARTMEN T VISIT SPECIALIS MODERATE TS SEVERITY OFFICE 59423 UNIVERSIT OUTPATIEN 0 0 Y T VISIT 5 HOSPITAL [facility] HOSPITAL UNIVERSIT - 0 0 Y [facility] ST - OTHER 0 0 LUIS OCAMPO NT HOME [facility], 0 0 DIST OTHER HEALTH DEPT [facility] ST - OTHER 0 0 [facility] OFF[facility] 76172 [facility] 0 0 SARKIS A T NEW 45 GASTROENT MINUTES EROLOGYAS SOC EMERGENCY 11502 SHAILESH GUAJARDO, 0 0 EMERGENCY BOSSMAN M DEPARTMEN SERVICES T VISIT HIGH/URGE ASSOCIATE NT S SEVERITY HOSPITAL JONO - 0 0 [facility] OUTPATIEN INC T EMERGENCY 80557 QUALIFELucila LOVE, DEPT 0 0 EMERGENCY JOSEPH M VISIT HIGH SPECIALIS SEVERITY& TS THREAT [facility] JONO - 0 0 [facility] OUTPATIEN INC T EMERGENCY 71158 SHAILESH HORAN, 0 0 EMERGENCY HONG DEPARTMEN SERVICES O T VISIT HIGH/URGE ASSOCIATE NT S SEVERITY [facility]OSPITAL [facility] - [facility] 54006 [facility] 8 8 Y T VISIT HOSPITAL [address] [facility] 8 8 [facility] 99506 [facility], 8 8 [facility] T VISIT ON MODERATE SEVERITY HOSPITAL UNIVERSIT - 8 8 Y [facility] T INC. EMERGENCY 53549 UNIVERSIT [address] [facility] HOSPITAL T VISIT INC. LIMITED/M [facility] HOSPITAL UNIVERSIT - 8 8 Y [facility] T INC. OFFICE [id number] [facility] 8 8 Y T VISIT HOSPITAL 15 INC. MINUTES
--- OUTSIDE RECORDS SUMMARY | 2016-09-03 16:29 | External Medical Summary Rpt ---
Demographics Preferred Language Uruguayan Marital Status Unknown Zoroastrian Affiliation Unknown Race Unknown Ethnic Group Unknown Author Author , Organization [employer] Address Unknown Phone Unavailable Purpose Continuity of Care Document - through 2016 Immunization No patient found.
--- OUTSIDE RECORDS SUMMARY | 2016-09-03 16:29 | External Medical Summary Rpt ---
Demographics Preferred Language Chilean Marital Status Unknown Methodist Affiliation Unknown Race Unknown Ethnic Group Unknown Author Author , Organization [employer] Address Unknown Phone Unavailable Purpose Continuity of Care Document - through 2016 Immunization No patient found.
--- OUTSIDE RECORDS SUMMARY | 2016-09-03 16:29 | External Medical Summary Rpt ---
Author Author ELOY Gonzalez, ELOY Gonzalez Organization [employer] Address Unknown Phone Unavailable
--- NOTE | 2016-09-03 17:23 | Emergency Room Report ---
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 N Clinical Suspician of Infection? N Mental Status: 1 - Regular (Normal Baseline) Sepsis Risk:Low Sepsis Risk Have you (or family members/close friends) recently traveled outside the [place]? N If Yes, where/when: Have you had exposure to infectious disease within the past month? TB? Other? Specify: Source patient, RN notes reviewed, RN/MD Exam Limitations no limitations Comment This is a 56-year-old lady arriving to the emergency room by POV with LEFT hip pain for the past 2-3 days. She underwent a LEFT hip replacement in [facility] approximately 2 months ago (07/06/16). Patient has been spending lots of time in the hospital together with her sister, as her [id number], hepatorenal transplant recipient has been very sick recently. Patient complains that she has been sleeping in the waiting room, and her LEFT hip has been hurting worse recently. Her orthopedic surgeon advised her to come to the closest emergency room in order to obtain some x-rays. Patient walked in to the emergency room, with a walker. ALLERGIES Coded Allergies: Penicillins (Intermediate, I-RASH 09/03/16) Influenza Virus Vaccines (GUILLIAN BARRE 09/03/16) pneumococcal vaccine (GUILLIAN BARRE 09/03/16) Home Medications Active Scripts Oxycodone 5MG/[id number] (Oxycodone-Acetaminophen 5-325) 1 TAB PO 2-3 DAILY PRN pain #75 TAB Prov: 08/22/15 Naproxen (Naprosyn 500MG Tab) 500 MG PO BID #14 TAB Prov: 11/29/15 Reported Medications Methocarbamol (Robaxin 500MG) 500 MG PO QIDP PRN MUSCLE RELAXER BUTALB/ACETAMINOPHEN/CAFFEINE (Fioricet 50-300-40 MG Capsule) 1 CAP PO Q6HP PRN MIGRAINE History Medical History General CAD? No Angina: No [place]: No Hypertension? No Hyperlipidemia? No CHF? No DVT? No PE? No COPD? No Asthma? No Anemia? No GERD? No Gastric ulcers? No GI Bleed? No Hernia? No Thyroid Problems? No Hypothyroidism? No CVA? No Seizures? No Diabetes? No Renal Insuffiency? No End Stage Renal Disease? No UTI? No Stones? No BPH? No GB Disease: No Nephritic Syndrome? No Asplenia? No Hepatitis? No Sickle Cell Disease? No Arthritis? Yes Migraines? Yes Cataracts? No Glaucoma? No MRSA? No HIV? No TB? No Anxiety? No Depression? No Cancer? No More? Yes Additional hx: GULLIAN BARRE SYNDROM CELLULITIS Immunization Hx Ped.Immunizations UTD Yes DT/Tetanus 01/15/10N Flu NEVER Pneumonia Refuses Surgical Hx Previous Surgery?Y PARTIAL HYSTERECTOMY SURG RT HAND RT SHOULDER RT.KNEE RT. 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 Hx LMP N/A Family History Family Hx Diabetes No CAD No Hypertension No Hyperlipidemia No Cancer Yes TB No Social History Smoking Hx Smoker: Current Every Day Smoker Tobacco: Yes Type Cigarettes Packs/day < 1 Pack Alcohol Alcohol: No Review of Systems All Other Systems Reviewed and Negative Musculoskeletal joint pain (LEFT hip) Physical Exam Vital Signs Vital Signs Date Time Temp Pulse Resp B/P Pulse O2 O2 Flow FiO2 Ox Delivery Rate 09/03 1725 98.3 87 18 149/88 97 09/03 1600 98.3 87 18 149/88 97 General Appearance normal appearance, WD/WN, moderate distress Respiratory Status Yes: trachea midline, chest symmetrical, non tender chest. No: respiratory distress. Lung Sounds bilateral: normal breath sounds, lungs clear. Cardiovascular normal exam, regular rate/rhythm, no peripheral edema, no gallop, no JVD, no murmur, no rub, normal peripheral pulses Gastrointestinal normal bowel sounds, normal exam, non tender, soft, no organomegaly Back normal inspection, no CVA tenderness, no vertebral tenderness, gait normal Extremities normal range of motion, normal inspection, left lateral hip tender to palpation Neurologic alert, caving guide II-XII nml as tested, normal exam, oriented x 3 Mental status normal mood/affect Skin intact, normal color, warm/dry Medical Decision Making LABS/Meds/Orders Pt receiving controlled substance in ED? No Comment Upon reevaluation patient appears medically stable, in no acute distress. Advised patient to continue her pain medications as prescribed by her orthopedic surgeon, and follow-up with him to 3 days if no better. Patient advised to wait for a copy of her LEFT hip x-ray, which patient refused, states that she has to return to [place]. Results/Orders Orders Procedure Date/time Status HIP LT 2-3V W/PELVIS IF PERFOR 09/03 1556 Active XRAY/CT/US XRAY/CT/US XRAY LEFT hip with pelvis view - no acute fracture, no dislocation Departure Departure Time of Disposition 1721 Disposition DC Home or Self Care(routine) Clinical Impression Primary Impression: Left hip pain Condition STABLE Referrals Aaron Fofana MD (Family) Patient Instructions DI for Hip Replacement, Help for Hip Pain Additional Instructions Please take your pain medications as directed, follow-up with your orthopedic surgeon within 2 days if persistent discomfort in her LEFT hip. Discharge Counseling Counseled pt/family regarding diagnosis, test results, medications/RX, home care, follow up needs Comment Please take your pain medications as directed, follow-up with your orthopedic surgeon within 2 days if persistent discomfort in her LEFT hip. ED Critical Care Critical Care No at [phone]
--- NOTE | 2016-09-03 17:23 | Emergency Room Report ---
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 N Clinical Suspician of Infection? N Mental Status: 1 - Regular (Normal Baseline) Sepsis Risk:Low Sepsis Risk Have you (or family members/close friends) recently traveled outside the [place]? N If Yes, where/when: Have you had exposure to infectious disease within the past month? TB? Other? Specify: Source patient, RN notes reviewed, RN/MD Exam Limitations no limitations Comment This is a 56-year-old lady arriving to the emergency room by POV with LEFT hip pain for the past 2-3 days. She underwent a LEFT hip replacement in [facility] approximately 2 months ago (07/06/16). Patient has been spending lots of time in the hospital together with her sister, as her [id number], hepatorenal transplant recipient has been very sick recently. Patient complains that she has been sleeping in the waiting room, and her LEFT hip has been hurting worse recently. Her orthopedic surgeon advised her to come to the closest emergency room in order to obtain some x-rays. Patient walked in to the emergency room, with a walker. ALLERGIES Coded Allergies: Penicillins (Intermediate, I-RASH 09/03/16) Influenza Virus Vaccines (GUILLIAN BARRE 09/03/16) pneumococcal vaccine (GUILLIAN BARRE 09/03/16) Home Medications Active Scripts Oxycodone 5MG/[id number] (Oxycodone-Acetaminophen 5-325) 1 TAB PO 2-3 DAILY PRN pain #75 TAB Prov: 08/22/15 Naproxen (Naprosyn 500MG Tab) 500 MG PO BID #14 TAB Prov: 11/29/15 Reported Medications Methocarbamol (Robaxin 500MG) 500 MG PO QIDP PRN MUSCLE RELAXER BUTALB/ACETAMINOPHEN/CAFFEINE (Fioricet 50-300-40 MG Capsule) 1 CAP PO Q6HP PRN MIGRAINE History Medical History General CAD? No Angina: No [place]: No Hypertension? No Hyperlipidemia? No CHF? No DVT? No PE? No COPD? No Asthma? No Anemia? No GERD? No Gastric ulcers? No GI Bleed? No Hernia? No Thyroid Problems? No Hypothyroidism? No CVA? No Seizures? No Diabetes? No Renal Insuffiency? No End Stage Renal Disease? No UTI? No Stones? No BPH? No GB Disease: No Nephritic Syndrome? No Asplenia? No Hepatitis? No Sickle Cell Disease? No Arthritis? Yes Migraines? Yes Cataracts? No Glaucoma? No MRSA? No HIV? No TB? No Anxiety? No Depression? No Cancer? No More? Yes Additional hx: GULLIAN BARRE SYNDROM CELLULITIS Immunization Hx Ped.Immunizations UTD Yes DT/Tetanus 01/15/10N Flu NEVER Pneumonia Refuses Surgical Hx Previous Surgery?Y PARTIAL HYSTERECTOMY SURG RT HAND RT SHOULDER RT.KNEE RT. 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 N/A Family History Family Hx Diabetes No CAD No Hypertension No Hyperlipidemia No Cancer Yes TB No Social History Smoking Hx Smoker: Current Every Day Smoker Tobacco: Yes Type Cigarettes Packs/day < 1 Pack Alcohol Alcohol: No Review of Systems All Other Systems Reviewed and Negative Musculoskeletal joint pain (LEFT hip) Physical Exam Vital Signs Vital Signs Date Time Temp Pulse Resp B/P Pulse O2 O2 Flow FiO2 Ox Delivery Rate 09/03 1725 98.3 87 18 149/88 97 09/03 1600 98.3 87 18 149/88 97 General Appearance normal appearance, WD/WN, moderate distress Respiratory Status Yes: trachea midline, chest symmetrical, non tender chest. No: respiratory distress. Lung Sounds bilateral: normal breath sounds, lungs clear. 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 No Comment Upon reevaluation patient appears medically stable, in no acute distress. Advised patient to continue her pain medications as prescribed by her orthopedic surgeon, and follow-up with him to 3 days if no better. Patient advised to wait for a copy of her LEFT hip x-ray, which patient refused, states that she has to return to [place]. Results/Orders Orders Procedure Date/time Status HIP LT 2-3V W/PELVIS IF PERFOR 09/03 1556 Active XRAY/CT/US XRAY/CT/US XRAY LEFT hip with pelvis view - no acute fracture, no dislocation Departure Departure Time of Disposition 1721 Disposition DC Home or Self Care(routine) Clinical Impression Primary Impression: Left hip pain Condition STABLE Referrals Aaron Fofana MD (Family) Patient Instructions DI for Hip Replacement, Help for Hip Pain Additional Instructions Please take your pain medications as directed, follow-up with your orthopedic surgeon within 2 days if persistent discomfort in her LEFT hip. Discharge Counseling Counseled pt/family regarding diagnosis, test results, medications/RX, home care, follow up needs Comment Please take your pain medications as directed, follow-up with your orthopedic surgeon within 2 days if persistent discomfort in her LEFT hip. ED Critical Care Critical Care No at [phone]
[2016-09-03 17:25] VITALS: BP 149/88
--- NOTE | 2016-09-04 07:01 | RADIOLOGY REPORT PS360 ---
HIP LT 2-3V W/PELVIS IF PERFOR HISTORY: Left hip pain and popping pain ORDERING PHYSICIAN: Vinny Milian MD PATIENT AGE: 56 years COMPARISON: 11/29/2015 FINDINGS: There is a total left hip prosthesis present which is in good alignment. No evidence of orthopedic complication. No acute fracture or dislocation. No lytic or blastic change. A sclerotic density overlies right femoral neck and may be due to a bone island at 13 mm. IMPRESSION: No change from August 29, 2015 with no acute finding, status post left hip replacement
== END 2016-09-03 17:27 | disposition home or self-care (01) ==
LOC: ER 15:45
DX: M25.552 Pain in left hip (principal)